=== PATIENT | female | born 1980 | race Caucasian/White ===

== ENCOUNTER 2020-11-20 14:03 | Inpatient (IN) | payer MEDICAID ==
[~2020-11-20] VITALS: Ht 172.7 cm; Wt 68.0 kg
[2020-11-20] MEDS ORDERED: ADENOSINE 6 MG/2 ML INJ IV ONE ×2 (14:15→14:17)
[2020-11-20] MEDS ORDERED: DIGOXIN (250MCG/ML) 2 ML AMPULE IV ONE ×2 (14:30→15:00)
[2020-11-20] MEDS ORDERED: DIGOXIN (250MCG/ML) 2 ML AMPULE ONE (14:36)
[2020-11-20] MEDS ORDERED: dilTIAZem 25 MG/5 ML VIAL IV ONE ×2 (14:36→14:45)
[2020-11-20 14:37] LABS: Basophils # (auto) 0.1 10 ^3/uL (0-0.2); Basophils % (auto) 0.6 % (0.0-2.0); Eosinophils # (auto) 0.1 10 ^3/uL (0-0.8); Eosinophils % (auto) 0.7 % (0.0-7.0); Hematocrit 46.9 % (36.0-46.0); Hemoglobin 15.6 g/dL (12.2-16.2); Lymphocytes # (auto) 1.9 10 ^3/uL (0.4-5.4); Mean Corpuscular Hemoglobin 30.7 pg (28.0-32.0); Mean Corpuscular Hgb Conc. 33.3 g/dL (32.0-36.0); Mean Corpuscular Volume 92.1 fL (80.0-100.0); Monocytes # (auto) 0.9 10 ^3/uL (0-1.3); Monocytes % (auto) 8.4 % (0.0-12.0); Neutrophils # (auto) 7.5 10 ^3/uL (1.6-8.6); Neutrophils % (auto) 72.3 % (37.0-80.0); Red Cell Distribution Width 13.7 % (11.8-14.3); White Blood Cell 10.3 10^3/uL (4.4-10.8)
[2020-11-20] MEDS ORDERED: dilTIAZem 125mg/125ml BAG KIT 125 ML IV ONE ×2 (14:37→14:45)
[2020-11-20 14:59] LABS: Albumin 4.1 g/dL (3.4-5.0); Calcium 8.9 mg/dL (8.5-10.1); Magnesium 2.5 mg/dL (1.6-2.6); Potassium 3.7 mmol/L (3.5-5.1)
[2020-11-20 15:04] LABS: BUN/Creatinine Ratio 18.9; Bilirubin, Total 0.6 mg/dL (0.2-1.0); Total Protein 8.2 g/dL (6.4-8.2)
[2020-11-20] MEDS ORDERED: dilTIAZem HCL 180MG ER CAP PO ONE (15:15)
[2020-11-20] MEDS ORDERED: MORPHINE SULFATE INJECTION 2 MG/ML SYRG IV PRN (22:45)
[2020-11-20] MEDS ORDERED: dilTIAZem 125mg/125ml BAG KIT 125 ML IV PRN (22:45)
[2020-11-20] MEDS ORDERED: NITROGLYCERIN 0.4 MG SL TAB SL PRN (22:45)
[2020-11-21 07:58] LABS: Basophils # (auto) 0.1 10 ^3/uL (0-0.2); Basophils % (auto) 0.9 % (0.0-2.0); Eosinophils # (auto) 0.2 10 ^3/uL (0-0.8); Eosinophils % (auto) 2.5 % (0.0-7.0); Hematocrit 45.4 % (36.0-46.0); Lymphocytes # (auto) 1.9 10 ^3/uL (0.4-5.4); Lymphocytes % (auto) 29.1 % (10.0-50.0); Mean Corpuscular Hemoglobin 30.3 pg (28.0-32.0); Mean Corpuscular Volume 91.9 fL (80.0-100.0); Monocytes # (auto) 0.6 10 ^3/uL (0-1.3); Monocytes % (auto) 8.9 % (0.0-12.0); Neutrophils # (auto) 3.8 10 ^3/uL (1.6-8.6); Neutrophils % (auto) 58.6 % (37.0-80.0); Nucleated Red Blood Cells % 0.1 %; Red Blood Cells 4.94 10^6/uL (4.0-5.20); Red Cell Distribution Width 13.4 % (11.8-14.3); White Blood Cell 6.5 10^3/uL (4.4-10.8)
[2020-11-21 08:11] LABS: Calcium 7.9 mg/dL (8.5-10.1); Magnesium 2.3 mg/dL (1.6-2.6); Potassium 3.8 mmol/L (3.5-5.1)
[2020-11-21 08:14] LABS: BUN/Creatinine Ratio 19.5
[2020-11-21] MEDS ORDERED: ASPirin 81 mg TAB PO SCH (10:00)
[2020-11-21] MEDS ORDERED: ATORVASTATIN 20 MG TAB PO SCH (10:00)
[2020-11-21] MEDS ORDERED: ENOXAPARIN SOD 40 MG/0.4 ML SYRINGE SC SCH (10:00)
[2020-11-21] MEDS ORDERED: METOPROLOL TARTRATE 25 MG TAB PO SCH (11:00)
[2020-11-21] MEDS ORDERED: POTASSIUM EFFERVESENT TAB 25 MEQ PO ONE (11:00)
[2020-11-21 13:00] VITALS: BP 122/86
[2020-11-21] MEDS ORDERED: CARV12.544 PO (13:35)
[2020-11-21] MEDS ORDERED: SACU1TAB4 PO (13:35)
[2020-11-21] MEDS ORDERED: CARV25TA55 PO (13:35)
[2020-11-21] MEDS ORDERED: FURO1TAB33 PO (13:35)
[2020-11-21 18:54] VITALS: BP 122/86
== END 2020-11-21 20:40 | disposition home or self-care (01) | DRG 201 ==
LOC: ER 14:03 → TELE 14:04 → TELE-EAST 11-21 12:14
PROVIDERS: ADMIT Hospitalist; ATTEND Hospitalist
DX: I47.1 Supraventricular tachycardia (principal); N17.0 Acute kidney failure with tubular necrosis; I50.22 Chronic systolic (congestive) heart failure; R73.9 Hyperglycemia, unspecified; E78.5 Hyperlipidemia, unspecified; R79.89 Other specified abnormal findings of blood chemistry; Z20.822 Contact with and (suspected) exposure to COVID-19; Z91.19 Patient's noncompliance with other medical treatment and regimen
CPT/HCPCS: 36415; 71045; 80048; 80053; 80061; 83735; 84443; 84484; 85025; 87426; 93005; 93306; 96365; 96366; 96372; 96375; 99291; G0378; J0153

== ENCOUNTER 2025-05-14 14:31 | Inpatient (IN) | payer MEDICAID ==
[~2025-05-14] VITALS: Ht 172.7 cm; Wt 99.0 kg
[~2025-05-14 14:31] MED LIST: CARV12.544 PO; CARV25TA55 PO; FURO1TAB33 PO; SACU1TAB4 PO
--- NOTE | 2025-05-14 14:53 | ED.PDOC ---
HPI Comments A 44 year-old female, with a PMHX of CHF, [place], and High Lipids, presents to the ED with a chief complaint of right sided chest pain with associated dizziness and SOB as of Tuesday05/11/25. Patient states chest pain is constant with associated feeling of "tightness" and "heaviness". Patient additionally reports an increase of dizziness with movement the last couple of days. Patient took 1 nitro Tuesday and Tuesday in attempt to alleviate symptoms. Patient takes Lasix and Carvedilol regularly, but reports running out of Entresto recently. Patient reports a suspected systemic Heart Attack X8 years ago. Patient has no further complaints at this time and otherwise denies further associated symptoms of palpitations, N/V, weakness, or tingling. Chief Complaint: Chest Pain Time Seen by MD: 14:51 Reviewed Notes: Nurses Notes, Medications, Allergies Allergies: Coded Allergies: No Known Drug Allergy (Verified Allergy, Unknown, 11/20/20) Home Meds Reported Medications Furosemide (Lasix) 20 Mg Tb, 1 TAB PO DAILY for SWELLING, #90 TAB 1 Refill 11/21/20 Sacubitril-Valsartan (Entresto 97-103 mg) 1 Tab Tab, 1 TAB PO BID, TAB 11/21/20 Carvedilol (Carvedilol) 25 Mg Tab, 25 MG PO HS for 30 Days, MG 11/21/20 Carvedilol (Carvedilol) 12.5 Mg Tab, 12.5 MG PO QAM for 30 Days, MG 11/21/20 Information Source: Patient Mode of Arrival: Ambulatory Severity: Moderate Duration: Since onset Prehospital treatment: None Associated Signs and Symptoms: SOB, Other (dizziness, chest pain ) Past Medical History PAST MEDICAL HISTORY: CHF, High Lipids, [place] Surgical History: Unknown Family History Family History: Reviewed,noncontributory to illness Social History Smoker: Non-Smoker Alcohol: Occasionally Drugs: Marijuana (YEARS AGO ) Lives In: Home Constitutional: denies: chills, diaphoresis, fatigue, fever, malaise, sweats, weakness, others EENTM: denies: blurred vision, double vision, ear bleeding, ear discharge, ear drainage, ear pain, ear ringing, eye pain, eye redness, hearing loss, mouth pain, mouth swelling, nasal discharge, nose bleeding, nose congestion, nose pain, photophobia, tearing, throat pain, throat swelling, voice changes, others Respiratory: reports: SOB at rest, shortness of breath, SOB with excertion; denies: cough, hemoptysis, orthopnea, stridor, wheezing, others Cardiovascular: reports: chest pain; denies: dizzy spells, diaphoresis, Dyspnea on exertion, edema, irregular heart beat, left arm pain, lightheadedness, palpitations, PND, syncope, others Gastrointestinal: denies: abdomen distended, abdominal pain, blood streaked bowels, constipated, diarrhea, dysphagia, difficulty swallowing, hematemesis, melena, nausea, poor appetite, poor fluid intake, rectal bleeding, rectal pain, vomiting, others Genitourinary: denies: abnormal vagina bleeding, burning, dyspareunia, dysuria, flank pain, frequency, hematuria, incontinence, pain, , vagina discharge, urgency, others Neurological: reports: dizziness; denies: fainting, headache, left sided numbness, left sided weakness, numbness, paresthesia, pre-existing deficit, right sided numbness, right sided weakness, seizure, speech problems, tingling, tremors, weakness, others Musculoskeletal: denies: back pain, gout, joint pain, joint swelling, muscle pain, muscle stiffness, neck pain, others Integumetry: denies: bruises, change in color, change in hair/nails, dryness, laceration, lesions, lumps, rash, wounds, others Allergic/Immunocompromised: denies: Difficulty Healing, Frequent Infections, Hives, Itching, others Hematologic/Lymphatic: denies: anemia, blood clots, easy bleeding, easy bruising, swollen glands, others Endocrine: denies: excessive hunger, excessive sweating, excessive thirst, excessive urination, flushing, intolerance to cold, intolerance to heat, unexplained weight gain, unexplained weight loss, others Psychiatric: denies: anxiety, bipolar disorder, depression, hopeless, panic disorder, schizophrenia, sleepless, suicidal, others All Other Systems: Reviewed and Negative Physical Exam General Appearance: Moderate Distress HEENT: Normal ENT Inspection, Pharynx Normal, TMs Normal Neck: Full Range of Motion, Non-Tender, Normal, Normal Inspection Respiratory: Chest Non-Tender, Lungs Clear, No Accessory Muscle Use, No Respiratory Distress, Normal Breath Sounds Cardiovascular: No Edema, No JVD, No Murmur, No Gallop, Normal Peripheral Pulses, Regular Rate/Rhythm Breast Exam: Deferred Gastrointestinal: No Organomegaly, Non Tender, No Pulsatile Mass, Normal Bowel Sounds, Soft Genitalia: Deferred Pelvic: Deferred Rectal: Deferred Extremities: No calf tenderness, Normal capillary refill, No pedal edema Musculoskeletal : Apperance: Normal Neurologic: Alert, power station operator II-XII nml as Tested, Motor Weakness, Normal Affect, Normal Mood, No Sensory Deficits Cerebellar Function: Normal Reflexes: Normal Skin: Dry, Normal Color, Warm Lymphatic: No Adenopathy EKG EKG : Pulse Rate (adult): 81 [place]: Normal Cardiac Rhythm: NSR Hypertrophy: LVH Was a procedure done? Was a procedure done?: No CP Differential Dx Differential Diagnosis: A-fib, Anxiety / Panic Attack Differential Diagnosis: HTN Essential, HTN Accelerated X-Ray, Labs, Meds, VS Vital Signs Date Time Temp Pulse Resp B/P (MAP) Pulse Ox O2 Delivery O2 Flow Rate FiO2 05/14/25 14:53 81 05/14/25 14:42 98.1 87 16 179/119 96 98.1 05/14/25 14:38 81 Lab Test 05/14/25 15:09 Range/Units White Blood Count 9.2 4.4-10.8 10^3/uL Red Blood Count 5.06 4.0-5.20 10^6/uL Hemoglobin 15.7 12.2-16.2 g/dL Hematocrit 45.7 36.0-46.0 % Mean Corpuscular Volume 90.3 80.0-100.0 fL Mean Corpuscular Hemoglobin 31.0 28.0-32.0 pg Mean Corpuscular Hemoglobin Concent 34.3 32.0-36.0 g/dL Red Cell Distribution Width 14.0 11.8-14.3 % Platelet Count 255 140-450 10^3/uL Mean Platelet Volume 8.5 6.9-10.8 fL Neutrophils (%) (Auto) 70.4 37.0-80.0 % Lymphocytes (%) (Auto) 19.3 10.0-50.0 % Monocytes (%) (Auto) 8.4 0.0-12.0 % Eosinophils (%) (Auto) 1.2 0.0-7.0 % Basophils (%) (Auto) 0.7 0.0-2.0 % Neutrophils # (Auto) 6.5 1.6-8.6 10 ^3/uL Lymphocytes # (Auto) 1.8 0.4-5.4 10 ^3/uL Monocytes # (Auto) 0.8 0-1.3 10 ^3/uL Eosinophils # (Auto) 0.1 0-0.8 10 ^3/uL Basophils # (Auto) 0.1 0-0.2 10 ^3/uL Nucleated Red Blood Cells 0.2 % Sodium Level 141 136-145 mmol/L Potassium Level 4.4 3.5-5.1 mmol/L Chloride Level 105 98-107 mmol/L Carbon Dioxide Level 29 20-31 mmol/L Anion Gap 7 5-15 Blood Urea Nitrogen 14 9-23 mg/dL Creatinine 0.89 0.550-1.02 mg/dL Glomerular Filtration Rate Calc 81 >90 mL/min BUN/Creatinine Ratio 15.7 10.0-20.0 Serum Glucose 105 74-106 mg/dL Calcium Level 9.3 8.7-10.4 mg/dL Troponin I High Sensitivity 8 </=34 ng/L CHEST XRAY IMPRESSION: No acute cardiopulmonary disease. IV Hep-Lock was established The CBC and chemistry panel are within normal limits The troponin level x1 is negative At this time, the patient is being admitted A cardiology consult will be obtained The patient understands and agrees with the management. Images Reviewed?: Images reviewed and evaluated by me Time of 1ST Reevaluation: 15:20 Reevaluation 1ST: Unchanged Patient Education/Counseling: Diagnosis, Treatment, Prognosis Family Education/Counseling: No Family Present SEPSIS Sepsis Screen Physician Orders Heplock Iv (05/14/25 15:03) Wireless Manager (05/14/25 15:03) Blood Pressure (05/14/25 15:03) Pulse Oximetry (05/14/25 15:03) Chest Two Views Routine (05/14/25 15:03) Urinalysis (05/14/25 15:03) Troponin-I Hs (05/14/25 16:03) Troponin-I Hs (05/14/25 18:03) Electrocardigram (05/14/25 16:03) Electrocardigram (05/14/25 18:03) Vital Signs Date Time Temp Pulse Resp B/P (MAP) Pulse Ox O2 Delivery O2 Flow Rate FiO2 05/14/25 14:53 81 05/14/25 14:42 98.1 87 16 179/119 96 98.1 05/14/25 14:38 81 Laboratory Tests Test 05/14/25 15:09 White Blood Count 9.2 10^3/uL (4.4-10.8) Departure 1 Departure Time of Disposition: 15:49 Impression: Primary Impression: Acute coronary syndrome Disposition: ADMITTED INPATIENT Admit to: Tele Condition: Fair Critical Care Note Critical Care Time?: Yes (45 min-critical care time only) Stability Stability form required: Yes Unstable for transfer: Telemetry monitoring (Telemetry monitoring required), ED Physician Assesment (Clinical assesment) Heart Score Heart Score: Heart Score Response (Comments) Value History Moderate Suspicious 1 EKG Normal 0 Age 45-64 1 Risk Factors 1 or 2 risk factors 1 Troponin Normal limit 0 Total 3 I personally scribed for SEEMA JONAS MD ([email or web address]) on 05/14/25 at 14:53. Electronically submitted by Asuncion Mckeon ([email or web address]). I personally scribed for SEEMA JONAS MD ([email or web address]) on 05/14/25 at 15:08. Electronically submitted by Asuncion Mckeon ([email or web address]). I personally scribed for SEEMA JONAS MD ([email or web address]) on 05/14/25 at 15:11. Electronically submitted by Asuncion Mckeon ([email or web address]). I personally scribed for SEEMA JONAS MD ([email or web address]) on 05/14/25 at 15:47. Electronically submitted by Asuncion Mckeon ([email or web address]). SEEMA JONAS MD May 14, 2025 14:53
--- NOTE | 2025-05-14 15:27 | DVH ---
XY CHEST TWO VIEWS ROUTINE CLINICAL HISTORY: CP COMPARISON: None TECHNIQUE: Frontal and lateral view of the chest was obtained FINDINGS: Lines and Tubes: None Lungs: No focal consolidation. Pleura: No effusion. No pneumothorax. Cardiomediastinal contours: Unremarkable Bones: No acute osseous abnormality. IMPRESSION: No acute cardiopulmonary disease.
[2025-05-14 15:31] LABS: Hematocrit 45.7 % (36.0-46.0); Hemoglobin 15.7 g/dL (12.2-16.2); Mean Corpuscular Hemoglobin 31.0 pg (28.0-32.0); Mean Corpuscular Volume 90.3 fL (80.0-100.0); Nucleated Red Blood Cells % 0.2 %
[2025-05-14 15:34] LABS: Chloride 105 mmol/L (98-107); Potassium 4.4 mmol/L (3.5-5.1); Sodium 141 mmol/L (136-145)
[2025-05-14 15:35] LABS: Anion Gap 7 (5-15); Calcium 9.3 mg/dL (8.7-10.4); Carbon Dioxide 29 mmol/L (20-31)
[2025-05-14 15:40] LABS: BUN/Creatinine Ratio 15.7 (10.0-20.0); Blood Urea Nitrogen 14 mg/dL (9-23); Glucose 105 mg/dL (74-106)
--- NOTE | 2025-05-14 15:47 | ECG ---
[facility] Test Date: 2025-05-14 Test Time: 15:45:09 Pat Name: IVANNA OJEDA Department: ED Room: [address] [place] [address] Gender: F [employer] Work[employer]: ALINE : 1980 Requested By: SEEMA JONAS Order Number: [id number] Reading MD: Kane Mancera Measurements Intervals [place] Rate: 73 P: 29 AR: 166 QRS: 48 QRSD: 105 T: 65 QT: 453 QTc: 500 Interpretive Statements Sinus rhythm Left atrial enlargement Probable anteroseptal infarct, old Electronically Signed On 05-15-2025 17:53:34 PDT by Kane Mancera Please click the below link to view image of tracing.
[2025-05-14 16:10] LABS: Urine Protein, UAD 1+ (Negative)
[2025-05-14] MEDS ORDERED: DOCUSATE SOD 100 MG CAP PO PRN (16:30)
[2025-05-14] MEDS ORDERED: NITROGLYCERIN 0.4 MG SL TAB SL PRN (16:30)
[2025-05-14] MEDS ORDERED: ONDANSETRON HCL 4 MG/2 ML VIAL IV PRN (16:30)
[2025-05-14] MEDS ORDERED: MORPHINE SULFATE INJ 2 MG/ml SYRG IV PRN (16:30)
--- NOTE | 2025-05-14 16:41 | DVHHP2 ---
History of Present Illness Reason for Visit: Acute coronary syndrome History of Present Illness The patient is a 44-year-old female with past medical history of CHF, hyperlipidemia, [place], and hypertension who presented to [facility] ED with complaint of right-sided chest pain. Patient reports symptoms progressively get worse with dizziness, constant chest pain, rating 7/10 numeric scale, feeling tightness and heaviness, shortness of breaths, getting worse that prompted this visit. Patient was seen and evaluated in the ED, laboratory data shows WBC 9.2, platelets 255, sodium 141, potassium 4.4, BUN 14, creatinine 0.89, glucose 105, calcium 9.3, troponin eight, blood pressure 179/110 trending down to 151/86, heart rate 87, temperature 98.1 F, O2 saturation 96% on oxygen. Chest x-ray showed no acute cardiopulmonary disease. Patient was given aspirin 81 mg x 1, clonidine 0.1 mg p.o. x1, please see medication orders section in the computer. On my assessment, patient denied chest pain at this moment, no headache, no diaphoresis, no shortness of breath, no nausea, no vomiting, no fever, no chills. Patient was admitted for further evaluation and medical management. Past Medical History CHF, High Lipids, [place] Past Surgical History Laparoscopy Family History Reviewed, noncontributory to the management of this case. Past Social History The patient lives at home, denies smoking, drinks alcohol occasionally, uses marijuana years ago. Review of Systems Constitutional: No: Fever, Chills, Sweats, Weakness, Malaise, Other Eyes: No: Pain, Vision change, Conjunctivae inflammation, Eyelid inflammation, Other, Redness ENT: No: Ear pain, Ear discharge, Nose pain, Nose discharge, Nose congestion, Mouth pain, Mouth swelling, Throat pain, Throat swelling, Other Respiratory: Shortness of breath, SOB with excertion, Other (SOB at rest); No: Cough, Dry, Wheezing, Hemoptysis, Pleuritic Pain, Sputum, Wheezing Cardiovascular: Chest Pain; No: Palpitations, Orthopnea, Paroxysmal Noc. D yspnea, Edema, Lt Headedness, Other Gastrointestinal: No: Nausea, Vomiting, Abdominal Pain, Diarrhea, Constipation, Melena, Hematochezia, Other Genitourinary: No Dysuria, No Frequency, No Incontinence, No Hematuria, No Retention, No Other Musculoskeletal: No: other, neck pain, shoulder pain, arm pain, back pain, hand pain, leg pain, foot pain Skin: No: Rash, Lesions, Jaundice, Bruising, Other Neurological: Other (Dizziness); No: Weakness, Numbness, Incoordination, Change in speech, Confusion, Seizures Allergies: Coded Allergies: No Known Drug Allergy (Verified Allergy, Unknown, 11/20/20) Exam Vital Signs Vital Signs Date Time Temp Pulse Resp B/P (MAP) Pulse Ox O2 Delivery O2 Flow Rate FiO2 05/14/25 15:45 73 05/14/25 14:42 98.1 16 179/119 96 98.1 General Appearance: Alert, Oriented X3, Cooperative, No acute distress HEENT: Atraumatic, PERRLA, EOMI, Mucous membr. moist/pink Respiratory: Clear to auscultation, Normal air movement Cardiovascular: Regular rate, Normal S1, Normal S2, No murmurs Abdominal: Normal bowel sounds, Soft, No tenderness, No hepatospenomegaly, No masses Extremities: No clubbing, No cyanosis, No edema, Normal pulses Skin: No rashes, No breakdown, No significant lesion Neuro: Normal gait, Normal speech, Strength at 5/5 X4 ext, Normal tone, Sensation intact, Cranial nerves 3-12 NL, Reflexes 2+ Psych/Mental Status: Mental status NL, Mood NL Labs/Xrays Labs Test 05/14/25 15:56 05/14/25 15:52 05/14/25 15:09 Range/Units Troponin I High Sensitivity 8 </=34 ng/L Urine Color Yellow Yellow Urine Clarity Clear Clear Urine pH 5.5 5.0-9.0 Urine Specific [place] 1.029 1.001-1.035 Urine Protein 1+ H Negative Urine Ketones Negative Negative Urine Blood Negative Negative /uL Urine Nitrite Negative Negative Urine Bilirubin Negative Negative Urine Urobilinogen Normal Negative mg/dL Urine Leukocyte Esterase Negative Negative /uL Urine RBC 1 0 - 4 /hpf Urine Microscopic WBC 2 0-5 /HPF Urine Squamous Epithelial Cells None seen <5 /hpf Urine Bacteria None seen None Seen /hpf Urine Mucus Few None Seen Urine Glucose Normal Normal mg/dL White Blood Count 9.2 4.4-10.8 10^3/uL Red Blood Count 5.06 4.0-5.20 10^6/uL Hemoglobin 15.7 12.2-16.2 g/dL Hematocrit 45.7 36.0-46.0 % Mean Corpuscular Volume 90.3 80.0-100.0 fL Mean Corpuscular Hemoglobin 31.0 28.0-32.0 pg Mean Corpuscular Hemoglobin Concent 34.3 32.0-36.0 g/dL Red Cell Distribution Width 14.0 11.8-14.3 % Platelet Count 255 140-450 10^3/uL Mean Platelet Volume 8.5 6.9-10.8 fL Neutrophils (%) (Auto) 70.4 37.0-80.0 % Lymphocytes (%) (Auto) 19.3 10.0-50.0 % Monocytes (%) (Auto) 8.4 0.0-12.0 % Eosinophils (%) (Auto) 1.2 0.0-7.0 % Basophils (%) (Auto) 0.7 0.0-2.0 % Neutrophils # (Auto) 6.5 1.6-8.6 10 ^3/uL Lymphocytes # (Auto) 1.8 0.4-5.4 10 ^3/uL Monocytes # (Auto) 0.8 0-1.3 10 ^3/uL Eosinophils # (Auto) 0.1 0-0.8 10 ^3/uL Basophils # (Auto) 0.1 0-0.2 10 ^3/uL Nucleated Red Blood Cells 0.2 % Sodium Level 141 136-145 mmol/L Potassium Level 4.4 3.5-5.1 mmol/L Chloride Level 105 98-107 mmol/L Carbon Dioxide Level 29 20-31 mmol/L Anion Gap 7 5-15 Blood Urea Nitrogen 14 9-23 mg/dL Creatinine 0.89 0.550-1.02 mg/dL Glomerular Filtration Rate Calc 81 >90 mL/min BUN/Creatinine Ratio 15.7 10.0-20.0 Serum Glucose 105 74-106 mg/dL Calcium Level 9.3 8.7-10.4 mg/dL PATIENT: IVANNA OJEDA ACCT: [id number] UNIT: [id number] : 1980 LOC: ER ROOM / BED: / AGE / SEX: 44 / F ADM STATUS: REG ER SERVICE 1503 ORDERING PHYSICIAN: SEEMA JONAS MD PROCEDURE(s): CXR2 - CHEST TWO VIEWS ROUTINE REASON: CP ORDER NUMBER(s): [id number], ACCESSION NUMBER(s): [id number] XY CHEST TWO VIEWS ROUTINE CLINICAL HISTORY: CP COMPARISON: None TECHNIQUE: Frontal and lateral view of the chest was obtained FINDINGS: Lines and Tubes: None Lungs: No focal consolidation. Pleura: No effusion. No pneumothorax. Cardiomediastinal contours: Unremarkable Bones: No acute osseous abnormality. IMPRESSION: No acute cardiopulmonary disease. SEPSIS Sepsis Screen Date sepsis recognized/suspect: May 14, 2025 Time Sepsis recognized/suspect: 1441 Recent Procedure: No On Antibiotic Therapy: No Respiratory Rate >20: No Heart Rate >90: No Temp<36 C (96.8 F) or >38.3 C: No SBP <90 or MAP <65 mmHG: No New Acute Mental Status Change: No Is the patient on CPAP, BIPAP,: No Physician Orders Heplock Iv (05/14/25 15:03) Cutter Operator Brick (05/14/25 15:03) Blood Pressure (05/14/25 15:03) Pulse Oximetry (05/14/25 15:03) Chest Two Views Routine (05/14/25 15:03) Troponin-I Hs (05/14/25 18:03) Electrocardigram (05/14/25 16:03) Electrocardigram (05/14/25 18:03) Vital Signs Date Time Temp Pulse Resp B/P (MAP) Pulse Ox O2 Delivery O2 Flow Rate FiO2 05/14/25 15:45 73 05/14/25 14:53 81 05/14/25 14:42 98.1 87 16 179/119 96 98.1 05/14/25 14:38 81 Laboratory Tests Test 05/14/25 15:09 White Blood Count 9.2 10^3/uL (4.4-10.8) Assessment/Plan Assessment/Plan Acute coronary syndrome Hypertensive urgency Plan 1. Admit to telemetry unit 2. Breathing treatment 3. Pain control management 4. Management of fluids and electrolytes 5. Consultation for hospitalist 6. Diagnostic tests chest x-ray 7. DVT prophylaxis-on aspirin 8. Repeat labs CBC, CMP in a.m. 9. Continue with current medical management 10. Treatment plan discussed with patient and RN. Patient verbalized understanding. Plan discussed with: Patient, Other (RN) Problem List: (1) Acute coronary syndrome (2) Hypertensive urgency Date of Service: May 14, 2025 Billing Provider: KENA NICOLE DNP Common Visit Codes: [id number] INP/OBS CARE (HIGH) KENA NICOLE DNP May 14, 2025 16:40
[2025-05-14 17:56] VITALS: PULSE 71; RESP 16; O2SAT 98
[2025-05-14] MEDS: SODIUM CHLOR 0.9% PF (SALINE LOCK) 10ML VIAL/SYR IV SCH (21:18)
[2025-05-14] MEDS: CARVEDILOL 12.5 MG TAB PO SCH (23:25)
[2025-05-14 23:30] VITALS: BP 161/85; PULSE 68; RESP 20; TEMP 97.9; O2SAT 96
[2025-05-15 05:00] VITALS: BP 128/64; PULSE 59; RESP 18; TEMP 97.8; O2SAT 99
[2025-05-15] MEDS: ACETAMINOPHEN 325 MG TAB PO PRN (05:55)
[2025-05-15 06:02] LABS: Hematocrit 41.2 % (36.0-46.0); Hemoglobin 14.3 g/dL (12.2-16.2); Mean Corpuscular Hemoglobin 31.3 pg (28.0-32.0); Mean Corpuscular Volume 90.4 fL (80.0-100.0); Nucleated Red Blood Cells % 0.0 %
[2025-05-15 06:21] LABS: Alanine Aminotransferase 11 U/L (7-40); Albumin 4.1 g/dL (3.2-4.8); Alkaline Phosphatase 88 U/L (46-116); Anion Gap 9 (5-15); BUN/Creatinine Ratio 17.6 (10.0-20.0); Bilirubin, Total 0.7 mg/dL (0.2-1.0); Blood Urea Nitrogen 13 mg/dL (9-23); Calcium 8.7 mg/dL (8.7-10.4); Carbon Dioxide 27 mmol/L (20-31); Chloride 105 mmol/L (98-107); Glucose 90 mg/dL (74-106); Potassium 3.6 mmol/L (3.5-5.1); Sodium 141 mmol/L (136-145); Total Protein 6.7 g/dL (5.7-8.2)
[2025-05-15 07:46] VITALS: BP 152/74; PULSE 73; RESP 21; TEMP 97.6; O2SAT 97
[2025-05-15 12:00] VITALS: BP 164/75; PULSE 53; RESP 24; TEMP 97.7; O2SAT 98
--- NOTE | 2025-05-15 15:10 | DVHPN2 ---
Subjective Continues to complain of chest tightness/heaviness Reviewed: Care Plan, H&P, Labs, Medications, Previous Orders, Radiology, Other (Consultation) Changes from previous H/P or p: No Changes Objective Vitals Vital Signs Date Time Temp Pulse Resp B/P (MAP) Pulse Ox O2 Delivery O2 Flow Rate FiO2 05/15/25 13:30 154/91 05/15/25 12:00 97.7 53 24 98 97.7 05/14/25 23:30 Room Air* 0 21 Intake/Output Intake and Output 05/15/25 07:00 Intake Total 600 ml Balance 600 ml Intake Oral 600 ml # Voids 2 General Appearance: Alert, Oriented X3, Cooperative, No acute distress HEENT: Atraumatic Lungs: Clear to auscultation, Normal air movement Cardiovascular: Regular rate, Normal S1, Normal S2 Abdomen: Normal bowel sounds, Soft, No tenderness Neuro: Normal speech, Cranial nerves 3-12 NL Psych/Mental Status: Mental status NL, Mood NL Medications Current Medications Medications Dose Ordered Sig/Mony Route Start Time Stop Time Status Last Admin Dose Admin Carvedilol 12.5 mg Q12HR PO 05/14/25 22:00 05/15/25 09:09 12.5 MG Aspirin 81 mg DAILY PO 05/15/25 10:00 05/15/25 09:08 81 MG Clonidine HCl 0.1 mg Q4HP PRN PO 05/14/25 16:30 05/15/25 11:59 0.1 MG Sodium Chloride 10 ml Q8HR IV 05/14/25 22:00 05/15/25 14:17 10 ML Acetaminophen/ Hydrocodone Bitart 1 tab Q4HP PRN PO 05/14/25 16:30 Ondansetron HCl 4 mg Q4HP PRN IV 05/14/25 16:30 Docusate Sodium 100 mg BIDPRN PRN PO 05/14/25 16:30 Acetaminophen 650 mg Q6HP PRN PO 05/14/25 16:30 05/15/25 05:55 650 MG Nitroglycerin 0.4 mg Q5MINP PRN SL 05/14/25 16:30 Morphine Sulfate 2 mg Q30M PRN IV 05/14/25 16:30 Laboratory Results Laboratory Tests 05/15/25 04:40 Chemistry Test 05/15/25 04:40 Albumin 4.1 g/dL (3.2-4.8) Calcium Level 8.7 mg/dL (8.7-10.4) Total Protein 6.7 g/dL (5.7-8.2) Coagulation Test 05/15/25 14:43 D-Dimer, Quantitative Pending LFT Test 05/15/25 04:40 Alanine Aminotransferase (ALT) 11 U/L (7-40) Alkaline Phosphatase 88 U/L (46-116) Aspartate Amino Transferase (AST) 12 U/L (13-40) L Total Bilirubin 0.7 mg/dL (0.2-1.0) Urinalysis Test 05/14/25 15:52 Urine Color Yellow (Yellow) Urine Clarity Clear (Clear) Urine pH 5.5 (5.0-9.0) Urine Specific [place] 1.029 (1.001-1.035) Urine Protein 1+ (Negative) H Urine Ketones Negative (Negative) Urine Blood Negative /uL (Negative) Urine Nitrite Negative (Negative) Urine Bilirubin Negative (Negative) Urine Urobilinogen Normal mg/dL (Negative) Urine Leukocyte Esterase Negative /uL (Negative) Urine RBC 1 /hpf (0 - 4) Urine Microscopic WBC 2 /HPF (0-5) Urine Squamous Epithelial Cells None seen /hpf (<5) Urine Bacteria None seen /hpf (None Seen) Urine Mucus Few (None Seen) Urine Glucose Normal mg/dL (Normal) Labs and/or images reviewed: Labs reviewed by me, Image(s) reviewed by me Assessment/Plan Assessment/Plan A 44 year old patient; multiple comorbidities; who presented to the emergency department with chest tightness/heaviness. 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 # HFrEF, NYHA class III; not in exacerbation # Nonischemic cardiomyopathy; due to Adderall use for ADHD # History of SVTs and pericarditis; due to Adderall use for ADHD # Prolonged QTc # History of ADHD # Dyslipidemia # Obesity Continue aspirin and statin Continue antihypertensive medications including carvedilol and adjust according to blood pressure measurements Reviewed lab work (negative troponin and negative drug screen) and imaging study Counseled the patient on the importance of adopting healthy lifestyle with diet and exercise in order to lose weight Reviewed EKGs Avoid QTc prolonging agents Continue GDMT as per cardiology Strict intake and output along with daily weight and fluid restriction Continue pain management as needed Avoid nephrotoxic agents Echocardiogram ordered Cardiology is following Telemetry Continue monitoring Goals of care discussed with the patient for 20 minutes; full code Late Entry. This medical document was created using an electronic medical record system with computerized dictation system. Although this document has been carefully reviewed, there might still be some phonetic and typographical errors. These areas are purely typographical due to imperfections of the software programs, and do not reflect any compromise in the patient's medical care. Plan discussed with: Patient, Other (Nurse) My Orders Orders - MATY JUAREZ MD Procedure Category Date Status Time * Cardiology Consult CONS 05/15/25 Transmitted 11:02 Date of Service: May 15, 2025 Billing Provider: MATY JUAREZ MD Common Visit Codes: [id number] INP/OBS CARE(HIGH) Secondary Visit Codes: [id number] CARE PLAN 30 MINUTES (20 minutes) MATY JUAREZ MD May 15, 2025 15:10
--- NOTE | 2025-05-15 15:21 | DVHINCON2 ---
Date Seen: May 15, 2025 Referring Physician MD Nohemy Reason for Consultation Chest pain History of Present Illness This is a 44-year-old female patient who presents to emergency room with chief complaint of chest pressure. Patient reports that she was experiencing chest pressure for approximately one week. She describes the pain as unprovoked, intermittent, pressure-like in nature, left-sided with radiation down her left arm. Associated symptoms include shortness of breath. Troponin levels have been negative. Initial twelve lead electrocardiogram feels a normal sinus rhythm with left ventricular hypertrophy and prolonged QTc interval. Significant past medical history includes congestive heart failure, nonischemic cardiomyopathy, myocardial infarction, pericarditis, SVT, hypertension, and dyslipidemia. Of note, the patient came in with blood pressure readings as high as 179/119. Patient showed this provider a log of home blood pressure readings with systolic readings reaching as high as 180s over the past five days. 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 Past Medical History Past medical history reviewed. No other significant than mentioned above. Past Surgical History Denies any previous surgeries Family History: Hypercholesterolemia G8 MOTHER Hypertension G8 MOTHER G8 SISTER Family History Home medications reviewed. Social History Denies the use of tobacco, alcohol or illicit drugs. Allergies: Coded Allergies: No Known Drug Allergy (Verified Allergy, Unknown, 11/20/20) Home Meds Reported Medications Furosemide (Lasix) 20 Mg Tb, 1 TAB PO DAILY for SWELLING, #90 TAB 1 Refill 11/21/20 Sacubitril-Valsartan (Entresto 97-103 mg) 1 Tab Tab, 1 TAB PO BID, TAB 11/21/20 Carvedilol (Carvedilol) 25 Mg Tab, 25 MG PO HS for 30 Days, MG 11/21/20 Carvedilol (Carvedilol) 12.5 Mg Tab, 12.5 MG PO QAM for 30 Days, MG 11/21/20 Home Meds Home medications reviewed. Current Medications Current Medications Medications (Trade) Dose Ordered Sig/Mony Route PRN Reason Start Time Stop Time Status Last Admin Carvedilol (Coreg Tablet) 12.5 mg Q12HR PO 05/14/25 22:00 05/15/25 09:09 Aspirin 81 mg DAILY PO 05/15/25 10:00 05/15/25 09:08 Clonidine HCl (Catapres Tablet) 0.1 mg Q4HP PRN PO SBP>150 05/14/25 16:30 05/15/25 11:59 Sodium Chloride (Saline Lock Ns) 10 ml Q8HR IV 05/14/25 22:00 05/15/25 14:17 Acetaminophen/ Hydrocodone Bitart ([place] 5/325MG Tab) 1 tab Q4HP PRN PO MODERATE PAIN (4-6 PAIN SCALE) 05/14/25 16:30 Ondansetron HCl (Zofran) 4 mg Q4HP PRN IV NAUSEA / VOMITING 05/14/25 16:30 Docusate Sodium (Colace Capsule) 100 mg BIDPRN PRN PO FOR CONSTIPATION 05/14/25 16:30 Acetaminophen (Tylenol Tablet) 650 mg Q6HP PRN PO PAIN SCALE 1-3 OR TEMP>100.4 05/14/25 16:30 05/15/25 05:55 Nitroglycerin (Ntrostat Sublingual) 0.4 mg Q5MINP PRN SL FOR CHEST PAIN 05/14/25 16:30 Morphine Sulfate 2 mg Q30M PRN IV FOR CHEST PAIN 05/14/25 16:30 Review of Systems Constitutional: No symptom reported Ears, Nose, & Throat: No symptom reported Eyes: No symptom reported Neurological: No symptoms reported Pulmonary/Respiratory: Shortness of breath Cardiovascular: Chest pain Gastrointestinal: No symptom reported Genitourinary: No symptom reported Musculoskeletal: No symptom reported Skin: No symptom reported Psychiatric: No symptom reported Endocrine: No symptom reported Hematologic/Lymphatic: No symptom reported Vital Signs Vital Signs Date Time Temp Pulse Resp B/P (MAP) Pulse Ox O2 Delivery O2 Flow Rate FiO2 05/15/25 13:30 154/91 05/15/25 12:00 97.7 53 24 98 97.7 05/14/25 23:30 Room Air* 0 21 Physical Exam General Appearance: Cooperative. Well-developed. Well-nourished. No acute distress. Pulmonary/Respiratory: Clear, bilateral breaths sounds. Cardiovascular/Chest: Regular rate and rhythm. Peripheral Pulses: 2+ Radial (R). 2+ Radial (L). 2+ Pedal (R). 2+ Pedal (L) Abdominal Exam: Normal bowel sounds. Ankle Exam: Negative ankle edema Lower extremities: Trace lower extremity edema Neuro/Mental Status: A/OX4, coherent. Thoughts/Psych: Normal thought pattern. Appropriate mood and affect. Good judgment and insight. Appearance: No acute distress. Skin Exam: Normal inspection. Normal color. Warm and dry. Labs/Diagnostic Data Labs Test 05/15/25 04:40 05/14/25 15:56 05/14/25 15:52 05/14/25 15:09 Range/Units White Blood Count 6.0 # 4.4-10.8 10^3/uL Red Blood Count 4.56 4.0-5.20 10^6/uL Hemoglobin 14.3 12.2-16.2 g/dL Hematocrit 41.2 36.0-46.0 % Mean Corpuscular Volume 90.4 80.0-100.0 fL Mean Corpuscular Hemoglobin 31.3 28.0-32.0 pg Mean Corpuscular Hemoglobin Concent 34.6 32.0-36.0 g/dL Red Cell Distribution Width 13.8 11.8-14.3 % Platelet Count 201 140-450 10^3/uL Mean Platelet Volume 8.6 6.9-10.8 fL Neutrophils (%) (Auto) 62.7 37.0-80.0 % Lymphocytes (%) (Auto) 25.2 10.0-50.0 % Monocytes (%) (Auto) 9.8 0.0-12.0 % Eosinophils (%) (Auto) 2.0 0.0-7.0 % Basophils (%) (Auto) 0.3 0.0-2.0 % Neutrophils # (Auto) 3.8 1.6-8.6 10 ^3/uL Lymphocytes # (Auto) 1.5 0.4-5.4 10 ^3/uL Monocytes # (Auto) 0.6 0-1.3 10 ^3/uL Eosinophils # (Auto) 0.1 0-0.8 10 ^3/uL Basophils # (Auto) 0 0-0.2 10 ^3/uL Nucleated Red Blood Cells 0.0 % Sodium Level 141 136-145 mmol/L Potassium Level 3.6 3.5-5.1 mmol/L Chloride Level 105 98-107 mmol/L Carbon Dioxide Level 27 20-31 mmol/L Anion Gap 9 5-15 Blood Urea Nitrogen 13 9-23 mg/dL Creatinine 0.74 0.550-1.02 mg/dL Glomerular Filtration Rate Calc 101 >90 mL/min BUN/Creatinine Ratio 17.6 10.0-20.0 Serum Glucose 90 74-106 mg/dL Calcium Level 8.7 8.7-10.4 mg/dL Total Bilirubin 0.7 0.2-1.0 mg/dL Aspartate Amino Transferase (AST) 12 L 13-40 U/L Alanine Aminotransferase (ALT) 11 7-40 U/L Alkaline Phosphatase 88 46-116 U/L Total Protein 6.7 5.7-8.2 g/dL Albumin 4.1 3.2-4.8 g/dL Hepatitis C Antibody Negative Negative Troponin I High Sensitivity 8 </=34 ng/L Urine Color Yellow Yellow Urine Clarity Clear Clear Urine pH 5.5 5.0-9.0 Urine Specific [place] 1.029 1.001-1.035 Urine Protein 1+ H Negative Urine Ketones Negative Negative Urine Blood Negative Negative /uL Urine Nitrite Negative Negative Urine Bilirubin Negative Negative Urine Urobilinogen Normal Negative mg/dL Urine Leukocyte Esterase Negative Negative /uL Urine RBC 1 0 - 4 /hpf Urine Microscopic WBC 2 0-5 /HPF Urine Squamous Epithelial Cells None seen <5 /hpf Urine Bacteria None seen None Seen /hpf Urine Mucus Few None Seen Urine Glucose Normal Normal mg/dL B-Type Natriuretic Peptide 132.28 0-100 pg/mL Assessment Chest pain, likely in the setting of hypertensive urgency Hx of HFrEF (per echo in 2020) , NYHA class III History of nonischemic cardiomyopathy Myocardial infarction History of SVT History pericarditis Dyslipidemia Plan/Recommendation We will continue with the following plan/recommendations (Dr. Mancera): * Transthoracic echocardiogram to evaluate cardiac function * Initiate guideline directed medical therapy for CHF * Add MRA (spironolactone) with stable potassium * Strict intake and output, daily weights, maintain fluid restriction * Aggressive BP control as tolerated * Close Cardiac surveillance Case discussed with . The patient reports undergoing a coronary angiogram with left heart catheterization in the past in which she was diagnosed with nonischemic cardiomyopathy. At this time, we will recommend for aggressive blood pressure control with up titrating her guideline directed medical therapy medications. Thank you for allowing us to care for this patient. Please call with any questions or concerns. Critical care time spent: 44 minutes This medical document was created using an electronic medical record system with voice recognition software and computerized dictation system. Although this document has been carefully reviewed, there might still be some phonetic and typographical errors. Occasional wrong-word or ``sound-alike substitutions may have occurred due to the inherent limitations of voice recognition software. These areas are purely typographical due to imperfections of the software programs and do not reflect any compromise in the patient's medical care. Please read the chart carefully and recognize, using context, where these substitutions have occurred. Plan discussed with: Patient NYHA Physical activity limitations: Class3(Marked) ordinary (activity causes symtoms) Date of Service: May 15, 2025 Billing Provider: JULES SALCEDO Cardiology Common Codes: [id number] INP/OBS CARE (High) Cardiology Consultation Codes: [id number] CONSULT <45MIN JULES SALCEDO May 15, 2025 15:20
[2025-05-15 16:55] LABS: Amphetamine Screen, Urine Neg (NEGATIVE); Barbiturate Scree,Urine Neg (NEGATIVE); Benzodiazephine Screen, Urine Neg (NEGATIVE); Cannabinoid Screen, Urine Neg (NEGATIVE); Cocaine Screen, Urine Neg (NEGATIVE); Opiate Scree,Urine Neg (NEGATIVE); Phencyclidine Screen, Urine Neg (NEGATIVE)
[2025-05-15 20:00] VITALS: PULSE 65; RESP 68; O2SAT 97
[2025-05-15 21:00] VITALS: BP 141/77; PULSE 68; RESP 19; TEMP 97.3; O2SAT 97
[2025-05-15] MEDS: SACUBITRIL-VALSARTAN 24mg/26mg TAB PO SCH (21:35)
[2025-05-16] VITALS (8 sets, daily range): BP systolic 113–157; BP diastolic 64–97; PULSE 53–71; RESP 15–19; TEMP 97–98.1; O2SAT 95–99
[2025-05-16] MEDS: HYDROcodone-ACET 5/325MG TAB PO PRN (04:47)
[2025-05-16 07:45] LABS: Hematocrit 41.2 % (36.0-46.0); Hemoglobin 14.0 g/dL (12.2-16.2); Mean Corpuscular Hemoglobin 30.6 pg (28.0-32.0); Mean Corpuscular Volume 90.0 fL (80.0-100.0); Nucleated Red Blood Cells % 0.0 %
[2025-05-16 07:51] LABS: Chloride 103 mmol/L (98-107); Potassium 4.3 mmol/L (3.5-5.1); Sodium 140 mmol/L (136-145)
[2025-05-16 07:52] LABS: Anion Gap 7 (5-15); Calcium 9.5 mg/dL (8.7-10.4); Carbon Dioxide 30 mmol/L (20-31)
[2025-05-16 07:58] LABS: BUN/Creatinine Ratio 15.6 (10.0-20.0); Blood Urea Nitrogen 15 mg/dL (9-23); Glucose 92 mg/dL (74-106)
--- NOTE | 2025-05-16 09:08 | DVHPN2 ---
Subjective Still complaining of chest tightness/heaviness Reviewed: Care Plan, H&P, Labs, Medications, Previous Orders, Radiology, Other (Consultation) Changes from previous H/P or p: No Changes Objective Vitals Vital Signs Date Time Temp Pulse Resp B/P (MAP) Pulse Ox O2 Delivery O2 Flow Rate FiO2 05/16/25 04:41 98.0 53 19 113/75 (88) 98 98.0 05/15/25 20:00 Room Air* 0 21 Intake/Output Intake and Output 05/16/25 07:00 Intake Total 120 ml Output Total 500 ml Balance -380 ml Intake Oral 120 ml Output Urine Total 500 ml General Appearance: Alert, Oriented X3, Cooperative, No acute distress HEENT: Atraumatic Lungs: Clear to auscultation, Normal air movement Cardiovascular: Regular rate, Normal S1, Normal S2 Abdomen: Normal bowel sounds, Soft, No tenderness Neuro: Normal speech, Cranial nerves 3-12 NL Psych/Mental Status: Mental status NL, Mood NL Medications Current Medications Medications Dose Ordered Sig/Mony Route Start Time Stop Time Status Last Admin Dose Admin Carvedilol 12.5 mg Q12HR PO 05/14/25 22:00 05/15/25 21:37 12.5 MG Aspirin 81 mg DAILY PO 05/15/25 10:00 05/15/25 09:08 81 MG Clonidine HCl 0.1 mg Q4HP PRN PO 05/14/25 16:30 05/15/25 11:59 0.1 MG Sodium Chloride 10 ml Q8HR IV 05/14/25 22:00 05/16/25 06:15 10 ML Acetaminophen/ Hydrocodone Bitart 1 tab Q4HP PRN PO 05/14/25 16:30 05/16/25 04:47 1 TAB Ondansetron HCl 4 mg Q4HP PRN IV 05/14/25 16:30 Docusate Sodium 100 mg BIDPRN PRN PO 05/14/25 16:30 Acetaminophen 650 mg Q6HP PRN PO 05/14/25 16:30 05/15/25 05:55 650 MG Nitroglycerin 0.4 mg Q5MINP PRN SL 05/14/25 16:30 Morphine Sulfate 2 mg Q30M PRN IV 05/14/25 16:30 Sacubitril/ Valsartan 1 tab BID PO 05/15/25 22:00 05/15/25 21:35 1 TAB Empaglifozin 10 mg DAILY PO 05/16/25 10:00 Atorvastatin Calcium 40 mg HS PO 05/16/25 22:00 Laboratory Results Laboratory Tests 05/16/25 05:56 Chemistry Test 05/16/25 05:56 Calcium Level 9.5 mg/dL (8.7-10.4) Coagulation Test 05/15/25 14:43 D-Dimer, Quantitative 0.27 mg/L FEU (0.0-0.49) Urinalysis Test 05/14/25 15:52 Urine Color Yellow (Yellow) Urine Clarity Clear (Clear) Urine pH 5.5 (5.0-9.0) Urine Specific [place] 1.029 (1.001-1.035) Urine Protein 1+ (Negative) H Urine Ketones Negative (Negative) Urine Blood Negative /uL (Negative) Urine Nitrite Negative (Negative) Urine Bilirubin Negative (Negative) Urine Urobilinogen Normal mg/dL (Negative) Urine Leukocyte Esterase Negative /uL (Negative) Urine RBC 1 /hpf (0 - 4) Urine Microscopic WBC 2 /HPF (0-5) Urine Squamous Epithelial Cells None seen /hpf (<5) Urine Bacteria None seen /hpf (None Seen) Urine Mucus Few (None Seen) Urine Glucose Normal mg/dL (Normal) Labs and/or images reviewed: Labs reviewed by me, Image(s) reviewed by me Assessment/Plan Assessment/Plan A 44 year old patient; multiple comorbidities; who presented to the emergency department with chest tightness/heaviness. 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 # HFrEF, NYHA class III; not in exacerbation # Nonischemic cardiomyopathy; due to Adderall use for ADHD # History of SVTs and pericarditis; due to Adderall use for ADHD # Prolonged QTc # History of ADHD # Dyslipidemia # Obesity Continue aspirin and statin Continue antihypertensive medications including carvedilol and adjust according to blood pressure measurements Reviewed lab work (negative troponin and negative drug screen) and imaging study Counseled the patient on the importance of adopting healthy lifestyle with diet and exercise in order to lose weight Reviewed EKGs Avoid QTc prolonging agents Continue GDMT as per cardiology Strict intake and output along with daily weight and fluid restriction Continue pain management as needed Avoid nephrotoxic agents Echocardiogram done but no results yet Cardiology is following Telemetry Continue monitoring Late Entry. This medical document was created using an electronic medical record system with computerized dictation system. Although this document has been carefully reviewed, there might still be some phonetic and typographical errors. These areas are purely typographical due to imperfections of the software programs, and do not reflect any compromise in the patient's medical care. Plan discussed with: Patient, Other (Nurse) My Orders Orders - MATY JUAREZ MD Procedure Category Date Status Time * Cardiology Consult CONS 05/15/25 Transmitted 11:02 Atorvastatin (Lipitor) PHA 05/16/25 In Process 22:00 Echo 2d Mode Cardiac US 05/16/25 Logged DOP 01:03 Date of Service: May 16, 2025 Billing Provider: MATY JUAREZ MD Common Visit Codes: [id number] INP/OBS CARE(HIGH) MATY JUAREZ MD May 16, 2025 09:08
[2025-05-16] MEDS: EMPAGLIFLOZIN 10 MG TAB PO SCH (10:09)
--- NOTE | 2025-05-16 12:30 | DVHPN2 ---
Consult Progress Note Subjective Other Systems: Patient in normal sinus rhythm on site monitor Objective vital signs Vital Sign Date Time Temp Pulse Resp B/P (MAP) Pulse Ox O2 Delivery O2 Flow Rate FiO2 05/16/25 10:10 71 154/97 05/16/25 08:30 97.0 18 97 97.0 05/16/25 08:00 Room Air* 0 21 Total Intake and Output 05/15/25 05/15/25 05/16/25 15:00 23:00 07:00 Intake Total 120 ml Output Total 500 ml Balance -380 ml medications Current Medications Medications Dose Ordered Sig/Mony Route Start Time Stop Time Status Last Admin Dose Admin Carvedilol 12.5 mg Q12HR PO 05/14/25 22:00 05/16/25 10:10 12.5 MG Aspirin 81 mg DAILY PO 05/15/25 10:00 05/16/25 10:09 81 MG Clonidine HCl 0.1 mg Q4HP PRN PO 05/14/25 16:30 05/15/25 11:59 0.1 MG Sodium Chloride 10 ml Q8HR IV 05/14/25 22:00 05/16/25 06:15 10 ML Acetaminophen/ Hydrocodone Bitart 1 tab Q4HP PRN PO 05/14/25 16:30 05/16/25 04:47 1 TAB Ondansetron HCl 4 mg Q4HP PRN IV 05/14/25 16:30 Docusate Sodium 100 mg BIDPRN PRN PO 05/14/25 16:30 Acetaminophen 650 mg Q6HP PRN PO 05/14/25 16:30 05/15/25 05:55 650 MG Nitroglycerin 0.4 mg Q5MINP PRN SL 05/14/25 16:30 Morphine Sulfate 2 mg Q30M PRN IV 05/14/25 16:30 Sacubitril/ Valsartan 1 tab BID PO 05/15/25 22:00 05/16/25 10:09 1 TAB Empaglifozin 10 mg DAILY PO 05/16/25 10:00 05/16/25 10:09 10 MG Atorvastatin Calcium 40 mg HS PO 05/16/25 22:00 Examination: GENERAL:Normal, LUNGS:Normal, CVS:Normal, NEURO:Normal laboratory and microbiology Laboratory Tests 05/16/25 05:56 Test 05/16/25 05:56 Range/Units Serum Glucose 92 74-106 mg/dL Problem List/Assessment/Plan Problem List/Assessment/Plan Chest pain, likely in the setting of hypertensive urgency Hx of HFrEF (per echo in 2020) , NYHA class III History of nonischemic cardiomyopathy Myocardial infarction History of SVT History pericarditis Dyslipidemia Plan/Recommendation (Dr. Mancera): * Transthoracic echocardiogram to evaluate cardiac function * Continue guideline directed medical therapy for CHF * Add MRA (spironolactone) with stable potassium * Strict intake and output, daily weights, maintain fluid restriction * Aggressive BP control as tolerated * Close Cardiac surveillance Case discussed with . The patient reports undergoing a coronary angiogram with left heart catheterization in the past in which she was diagnosed with nonischemic cardiomyopathy. At this time, we will recommend for aggressive blood pressure control with up titrating her guideline directed medical therapy medications. Thank you for allowing us to care for this patient. Please call with any questions or concerns. This medical document was created using an electronic medical record system with voice recognition software and computerized dictation system. Although this document has been carefully reviewed, there might still be some phonetic and typographical errors. Occasional wrong-word or ``sound-alike substitutions may have occurred due to the inherent limitations of voice recognition software. These areas are purely typographical due to imperfections of the software programs and do not reflect any compromise in the patient's medical care. Please read the chart carefully and recognize, using context, where these substitutions have occurred. Plan discussed with: Patient Date of Service: May 16, 2025 Billing Provider: JULES SALCEDO Common Visit Codes: [id number] INP/OBS CARE(HIGH) JULES SALCEDO May 16, 2025 12:30
[2025-05-16] MEDS: ATORVASTATIN 20 MG TAB PO SCH (21:11)
[2025-05-17 01:00] VITALS: BP 117/74; PULSE 65; RESP 17; TEMP 97.8; O2SAT 97
[2025-05-17 05:00] VITALS: BP 155/77; PULSE 65; RESP 17; TEMP 97.4; O2SAT 99
[2025-05-17 07:03] LABS: Chloride 106 mmol/L (98-107); Potassium 3.8 mmol/L (3.5-5.1); Sodium 140 mmol/L (136-145)
[2025-05-17 07:04] LABS: Anion Gap 8 (5-15); Calcium 8.8 mg/dL (8.7-10.4); Carbon Dioxide 26 mmol/L (20-31)
[2025-05-17 07:10] LABS: BUN/Creatinine Ratio 20.0 (10.0-20.0); Blood Urea Nitrogen 18 mg/dL (9-23); Glucose 90 mg/dL (74-106)
[2025-05-17 08:00] VITALS: PULSE 82; RESP 16
--- NOTE | 2025-05-17 08:14 | DVHPN2 ---
Subjective Feeling much better this morning with no complaints Reviewed: Care Plan, H&P, Labs, Medications, Previous Orders, Radiology, Other (Consultation) Changes from previous H/P or p: Changes Objective Vitals Vital Signs Date Time Temp Pulse Resp B/P (MAP) Pulse Ox O2 Delivery O2 Flow Rate FiO2 05/17/25 05:00 97.4 65 17 155/77 (103) 99 97.4 05/16/25 20:00 Room Air* 0 21 Intake/Output Intake and Output 05/17/25 07:00 Intake Total 340 ml Output Total 725 ml Balance -385 ml Intake Oral 340 ml Output Urine Total 725 ml General Appearance: Alert, Oriented X3, Cooperative, No acute distress HEENT: Atraumatic Lungs: Clear to auscultation, Normal air movement Cardiovascular: Regular rate, Normal S1, Normal S2 Abdomen: Normal bowel sounds, Soft, No tenderness Extremities: No edema Neuro: Normal speech, Cranial nerves 3-12 NL Psych/Mental Status: Mental status NL, Mood NL Medications Current Medications Medications Dose Ordered Sig/Mony Route Start Time Stop Time Status Last Admin Dose Admin Carvedilol 12.5 mg Q12HR PO 05/14/25 22:00 05/16/25 21:11 12.5 MG Aspirin 81 mg DAILY PO 05/15/25 10:00 05/16/25 10:09 81 MG Clonidine HCl 0.1 mg Q4HP PRN PO 05/14/25 16:30 05/15/25 11:59 0.1 MG Sodium Chloride 10 ml Q8HR IV 05/14/25 22:00 05/17/25 05:16 10 ML Acetaminophen/ Hydrocodone Bitart 1 tab Q4HP PRN PO 05/14/25 16:30 05/17/25 01:24 1 TAB Ondansetron HCl 4 mg Q4HP PRN IV 05/14/25 16:30 Docusate Sodium 100 mg BIDPRN PRN PO 05/14/25 16:30 Acetaminophen 650 mg Q6HP PRN PO 05/14/25 16:30 05/15/25 05:55 650 MG Nitroglycerin 0.4 mg Q5MINP PRN SL 05/14/25 16:30 Morphine Sulfate 2 mg Q30M PRN IV 05/14/25 16:30 Sacubitril/ Valsartan 1 tab BID PO 05/15/25 22:00 05/16/25 21:11 1 TAB Empaglifozin 10 mg DAILY PO 05/16/25 10:00 05/16/25 10:09 10 MG Atorvastatin Calcium 40 mg HS PO 05/16/25 22:00 05/16/25 21:11 40 MG Laboratory Results Laboratory Tests 05/16/25 05:56 05/17/25 06:14 Chemistry Test 05/17/25 06:14 Calcium Level 8.8 mg/dL (8.7-10.4) Urinalysis Test 05/14/25 15:52 Urine Color Yellow (Yellow) Urine Clarity Clear (Clear) Urine pH 5.5 (5.0-9.0) Urine Specific [place] 1.029 (1.001-1.035) Urine Protein 1+ (Negative) H Urine Ketones Negative (Negative) Urine Blood Negative /uL (Negative) Urine Nitrite Negative (Negative) Urine Bilirubin Negative (Negative) Urine Urobilinogen Normal mg/dL (Negative) Urine Leukocyte Esterase Negative /uL (Negative) Urine RBC 1 /hpf (0 - 4) Urine Microscopic WBC 2 /HPF (0-5) Urine Squamous Epithelial Cells None seen /hpf (<5) Urine Bacteria None seen /hpf (None Seen) Urine Mucus Few (None Seen) Urine Glucose Normal mg/dL (Normal) Labs and/or images reviewed: Labs reviewed by me, Image(s) reviewed by me Assessment/Plan Assessment/Plan A 44 year old patient; multiple comorbidities; who presented to the emergency department with chest tightness/heaviness. 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 # HFrEF, NYHA class III; not in exacerbation # Nonischemic cardiomyopathy; due to Adderall use for ADHD # History of SVTs and pericarditis; due to Adderall use for ADHD # Prolonged QTc # History of ADHD # Dyslipidemia # Obesity Reconciled home medications upon discharge; counseled on the importance of adhering to medical management especially GDMT Reviewed lab work (negative troponin and negative drug screen) and imaging study Counseled the patient on the importance of adopting healthy lifestyle with diet and exercise in order to lose weight Reviewed EKGs Encouraged to avoid QTc prolonging agents Evaluated by Cardiology during admission Encouraged to continue fluid restriction with daily weight as outpatient Received pain management during admission Was on telemetry Reviewed echocardiogram results with the patient To follow up with Dr. Juarez in discharge clinic next Tuesday To follow up with Cardiology within 2 to 4 weeks Echocardiogram results: Sinus rhythm. Left atrial enlargement. Aortic root enlargement. LV enlargement. Concentric LVH. Mild mitral annular calcification. The aortic and tricuspid are structurally normal. Left ventricular systolic performance is diminished. EF is about 35% with global hypokinesis. Normal RV function. Doppler reveals moderate mitral insufficiency. Mild tricuspid regurgitation. No pericardial effusion masses or vegetations. Late Entry. This medical document was created using an electronic medical record system with computerized dictation system. Although this document has been carefully reviewed, there might still be some phonetic and typographical errors. These areas are purely typographical due to imperfections of the software programs, and do not reflect any compromise in the patient's medical care. Plan discussed with: Patient, Other My Orders Orders - MATY JUAREZ MD Procedure Category Date Status Time Amlodipine Tablet PHA 05/17/25 Verified (Norvasc Tablet) 10:00 Date of Service: May 17, 2025 Billing Provider: MATY JUAREZ MD Common Visit Codes: [id number] INP/OBS CARE(MOD) MATY JUAREZ MD May 17, 2025 08:14
[2025-05-17 08:53] VITALS: BP 163/91; PULSE 51; RESP 16; TEMP 98.1; O2SAT 98
--- NOTE | 2025-05-17 10:31 | DVHSR ---
APPROVED REPORT EXAM: Two-dimensional and M-mode echocardiogram with Doppler and color Doppler. Blood Pressure: 113/75 mmHg INDICATION Chest Pain RISK FACTORS Height: 5'8", Weight: 201 DIMENSIONS LVDd5.8 (3.8-5.7cm)LA (2D)5.4 (1.9-4.0cm)Aortic Root3.7 (2.0-3.7cm) LVDs4.8 (2.5-4.0cm)LA (MM) (1.9-4.0cm)Aortic Cusp Exc2.2 (1.5-2.0cm) EF (%) 36.0 (55-70%)Rt. Atrium3.4 (1.9-4.0cm)Asc. Aorta3.7 cm IVSd1.1 (0.7-1.1cm)RV (D)3.8 (1.8-2.4cm) PWd1.8 (0.7-1.1cm) Mitral Valve MitralMitral Stenosis E wave0.84m/sMV Mean GR.mmHg A wave1.14m/sMV Peak GR.mmHg E/A ratio0.72D MVAcm2 DECEL [id number] 1/2 Timems Aortic Valve Aortic ValveAortic Stenosis V11.02m/Aron Mean GR.7mmHg V21.72m/Aron Peak GR.12mmHg LVOT Diameter2.6 (1.8-2.4cm)Doppler AVA3.15cm2 AI P 1/2 Sbyt896.53ms Pulmonic Valve V21.03m/s Tricuspid Valve TR Velocity2.44m/s [id number] Conclusion Sinus rhythm. Left atrial enlargement. Aortic root enlargement. LV enlargement. Concentric LVH. Mild mitral annular calcification. The aortic and tricuspid are structurally normal. Left ventricular systolic performance is diminished. EF is about 35% with global hypokinesis. Riya l RV function. Doppler reveals moderate mitral insufficiency. Mild tricuspid regurgitation. No pericardial effusion masses or vegetations.
--- NOTE | 2025-05-17 10:51 | DVHPN2 ---
Consult Progress Note Subjective Other Systems: Patient remains in normal sinus rhythm on engine monitor No cardiac complaints at time of assessment Objective vital signs Vital Sign Date Time Temp Pulse Resp B/P (MAP) Pulse Ox O2 Delivery O2 Flow Rate FiO2 05/17/25 09:26 77 163/91 05/17/25 08:53 98.1 16 98 98.1 05/17/25 08:00 Room Air* 0 21 Total Intake and Output 05/16/25 05/16/25 05/17/25 15:00 23:00 07:00 Intake Total 340 ml Output Total 725 ml Balance -385 ml medications Current Medications Medications Dose Ordered Sig/Mony Route Start Time Stop Time Status Last Admin Dose Admin Carvedilol 12.5 mg Q12HR PO 05/14/25 22:00 05/17/25 09:26 12.5 MG Aspirin 81 mg DAILY PO 05/15/25 10:00 05/17/25 09:26 81 MG Clonidine HCl 0.1 mg Q4HP PRN PO 05/14/25 16:30 05/15/25 11:59 0.1 MG Sodium Chloride 10 ml Q8HR IV 05/14/25 22:00 05/17/25 05:16 10 ML Acetaminophen/ Hydrocodone Bitart 1 tab Q4HP PRN PO 05/14/25 16:30 05/17/25 01:24 1 TAB Ondansetron HCl 4 mg Q4HP PRN IV 05/14/25 16:30 Docusate Sodium 100 mg BIDPRN PRN PO 05/14/25 16:30 Acetaminophen 650 mg Q6HP PRN PO 05/14/25 16:30 05/15/25 05:55 650 MG Nitroglycerin 0.4 mg Q5MINP PRN SL 05/14/25 16:30 Morphine Sulfate 2 mg Q30M PRN IV 05/14/25 16:30 Sacubitril/ Valsartan 1 tab BID PO 05/15/25 22:00 05/17/25 09:24 1 TAB Empaglifozin 10 mg DAILY PO 05/16/25 10:00 05/17/25 09:25 10 MG Atorvastatin Calcium 40 mg HS PO 05/16/25 22:00 05/16/25 21:11 40 MG Amlodipine Besylate 10 mg DAILY PO 05/17/25 10:00 05/17/25 09:25 10 MG Examination: GENERAL:Normal, LUNGS:Normal, CVS:Normal, NEURO:Normal laboratory and microbiology Laboratory Tests 05/17/25 06:14 05/16/25 05:56 Test 05/17/25 06:14 Range/Units Serum Glucose 90 74-106 mg/dL Problem List/Assessment/Plan Problem List/Assessment/Plan Chest pain, likely in the setting of hypertensive urgency Acute on chronic HFrEF , NYHA class III History of nonischemic cardiomyopathy Moderate mitral insufficiency Mild tricuspid regurgitation Myocardial infarction History of SVT History pericarditis Dyslipidemia Plan/Recommendation (Dr. Mancera): * Transthoracic echocardiogram reveals EF 35% with global hypokinesis * Continue guideline directed medical therapy for CHF * Hold CCB's as this is contraindicated in heart failure with reduced ejection fraction * Strict intake and output, daily weights, maintain fluid restriction * Aggressive BP control as tolerated * Close Cardiac surveillance Case discussed with . The patient reports undergoing a coronary angiogram with left heart catheterization in the past in which she was diagnosed with nonischemic cardiomyopathy. At this time, we will recommend for aggressive blood pressure control with up titrating her guideline directed medical therapy medications. Thank you for allowing us to care for this patient. Please call with any questions or concerns. This medical document was created using an electronic medical record system with voice recognition software and computerized dictation system. Although this document has been carefully reviewed, there might still be some phonetic and typographical errors. Occasional wrong-word or ``sound-alike substitutions may have occurred due to the inherent limitations of voice recognition software. These areas are purely typographical due to imperfections of the software programs and do not reflect any compromise in the patient's medical care. Please read the chart carefully and recognize, using context, where these substitutions have occurred. Plan discussed with: Patient Date of Service: May 17, 2025 Billing Provider: JULES SALCEDO Common Visit Codes: [id number] INP/OBS CARE(HIGH) JULES SALCEDO May 17, 2025 10:51
[2025-05-17 13:00] VITALS: BP 152/93; PULSE 54; RESP 16; TEMP 98; O2SAT 96
[2025-05-17] MEDS: SPIRONOLACTONE 25 MG TAB PO ONE (13:36)
[2025-05-17] MEDS ORDERED: SPIR25TA PO (14:27)
[2025-05-17] MEDS ORDERED: NITR0.4S29 SL (14:27)
[2025-05-17] MEDS ORDERED: ATOR20TA50 PO (14:27)
[2025-05-17] MEDS ORDERED: CARV-216 PO (14:27)
[2025-05-17] MEDS ORDERED: EMPA1TAB PO (14:27)
[2025-05-17] MEDS ORDERED: SACU1TAB PO (14:27)
--- NOTE | 2025-05-17 14:32 | DVHDS2 ---
Discharge Summary Date of Admission May 14, 2025 at 16:28 Date of Discharge: May 17, 2025 Admitting Diagnosis Chest tightness/heaviness Labs/Diagnostic Data: Laboratory Results Test 05/17/25 06:14 05/16/25 05:56 05/15/25 16:15 05/15/25 14:43 Sodium Level 140 mmol/L (136-145) Potassium Level 3.8 mmol/L (3.5-5.1) Chloride Level 106 mmol/L (98-107) Carbon Dioxide Level 26 mmol/L (20-31) Anion Gap 8 (5-15) Blood Urea Nitrogen 18 mg/dL (9-23) Creatinine 0.90 mg/dL (0.550-1.02) Glomerular Filtration Rate Calc 80 mL/min (>90) BUN/Creatinine Ratio 20.0 (10.0-20.0) Serum Glucose 90 mg/dL (74-106) Calcium Level 8.8 mg/dL (8.7-10.4) White Blood Count 5.0 10^3/uL (4.4-10.8) Red Blood Count 4.58 10^6/uL (4.0-5.20) Hemoglobin 14.0 g/dL (12.2-16.2) Hematocrit 41.2 % (36.0-46.0) Mean Corpuscular Volume 90.0 fL (80.0-100.0) Mean Corpuscular Hemoglobin 30.6 pg (28.0-32.0) Mean Corpuscular Hemoglobin Concent 34.0 g/dL (32.0-36.0) Red Cell Distribution Width 14.1 % (11.8-14.3) Platelet Count 217 10^3/uL (140-450) Mean Platelet Volume 8.9 fL (6.9-10.8) Neutrophils (%) (Auto) 63.0 % (37.0-80.0) Lymphocytes (%) (Auto) 25.1 % (10.0-50.0) Monocytes (%) (Auto) 9.8 % (0.0-12.0) Eosinophils (%) (Auto) 1.8 % (0.0-7.0) Basophils (%) (Auto) 0.3 % (0.0-2.0) Neutrophils # (Auto) 3.1 10 ^3/uL (1.6-8.6) Lymphocytes # (Auto) 1.2 10 ^3/uL (0.4-5.4) Monocytes # (Auto) 0.5 10 ^3/uL (0-1.3) Eosinophils # (Auto) 0.1 10 ^3/uL (0-0.8) Basophils # (Auto) 0 10 ^3/uL (0-0.2) Nucleated Red Blood Cells 0.0 % Urine Opiates Screen Neg (NEGATIVE) Urine Fentanyl Screen Neg (NEGATIVE) Urine Barbiturates Screen Neg (NEGATIVE) Urine Phencyclidine Screen Neg (NEGATIVE) Urine Amphetamines Screen Neg (NEGATIVE) Urine Benzodiazepines Screen Neg (NEGATIVE) Urine Cocaine Screen Neg (NEGATIVE) Urine Cannabinoids Screen Neg (NEGATIVE) D-Dimer, Quantitative 0.27 mg/L FEU (0.0-0.49) Test 05/15/25 04:40 05/14/25 15:56 05/14/25 15:52 05/14/25 15:09 Total Bilirubin 0.7 mg/dL (0.2-1.0) Aspartate Amino Transferase (AST) 12 U/L (13-40) Alanine Aminotransferase (ALT) 11 U/L (7-40) Alkaline Phosphatase 88 U/L (46-116) Total Protein 6.7 g/dL (5.7-8.2) Albumin 4.1 g/dL (3.2-4.8) Hepatitis B Core Total Antibody Negative (Negative) Hepatitis C Antibody Negative (Negative) Troponin I High Sensitivity 8 ng/L (</=34) Urine Color Yellow (Yellow) Urine Clarity Clear (Clear) Urine pH 5.5 (5.0-9.0) Urine Specific [place] 1.029 (1.001-1.035) Urine Protein 1+ (Negative) Urine Ketones Negative (Negative) Urine Blood Negative /uL (Negative) Urine Nitrite Negative (Negative) Urine Bilirubin Negative (Negative) Urine Urobilinogen Normal mg/dL (Negative) Urine Leukocyte Esterase Negative /uL (Negative) Urine RBC 1 /hpf (0 - 4) Urine Microscopic WBC 2 /HPF (0-5) Urine Squamous Epithelial Cells None seen /hpf (<5) Urine Bacteria None seen /hpf (None Seen) Urine Mucus Few (None Seen) Urine Glucose Normal mg/dL (Normal) B-Type Natriuretic Peptide 132.28 pg/mL (0-100) Other Laboratory Tests 05/17/25 06:14 05/16/25 05:56 Brief Hx & Hospital Course: A 44 year old patient; multiple comorbidities; who presented to the emergency department with chest tightness/heaviness. 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 # HFrEF, NYHA class III; not in exacerbation # Nonischemic cardiomyopathy; due to Adderall use for ADHD # History of SVTs and pericarditis; due to Adderall use for ADHD # Prolonged QTc # History of ADHD # Dyslipidemia # Obesity Reconciled home medications upon discharge; counseled on the importance of adhering to medical management especially GDMT Reviewed lab work (negative troponin and negative drug screen) and imaging study Counseled the patient on the importance of adopting healthy lifestyle with diet and exercise in order to lose weight Reviewed EKGs Encouraged to avoid QTc prolonging agents Evaluated by Cardiology during admission Encouraged to continue fluid restriction with daily weight as outpatient Received pain management during admission Was on telemetry Reviewed echocardiogram results with the patient To follow up with Dr. Juarez in discharge clinic next Tuesday To follow up with Cardiology within 2 to 4 weeks Echocardiogram results: Sinus rhythm. Left atrial enlargement. Aortic root enlargement. LV enlargement. Concentric LVH. Mild mitral annular calcification. The aortic and tricuspid are structurally normal. Left ventricular systolic performance is diminished. EF is about 35% with global hypokinesis. Normal RV function. Doppler reveals moderate mitral insufficiency. Mild tricuspid regurgitation. No pericardial effusion masses or vegetations. Physical examination as documented in the progress note of the day of discharge Late Entry. This medical document was created using an electronic medical record system with computerized dictation system. Although this document has been carefully reviewed, there might still be some phonetic and typographical errors. These areas are purely typographical due to imperfections of the software programs, and do not reflect any compromise in the patient's medical care. Consults/Reason for consult Cardiology for chest tightness/heaviness Condition at Discharge: Stable Final Diagnosis/Problems List Chest pain, likely in the setting of hypertensive urgency Rest of diagnoses as above Discharge Disposition: Home Discharge Instruct/Medications Diet: Cardiac 2g Na,low cholest Activity: No Restrictions, As Tolerated Follow Up/Referral: Dr. Juarez/Dr. Aden at 10:30 am on Tuesday at [facility]; Dr. Mancera within 2 to 4 weeks Medications: As per EMR Scheduled Atorvastatin Calcium (Atorvastatin Calcium), 20 MG PO HS Carvedilol (Coreg), 12.5 MG PO Q12HR Empagliflozin (Jardiance), 10 MG PO DAILY Furosemide (Lasix), 1 TAB PO DAILY, (Reported) Sacubitril-Valsartan (Entresto 24-26 mg), 1 TAB PO BID Spironolactone (Aldactone), 25 MG PO DAILY Scheduled PRN Nitroglycerin (Ntrostat Sublingual), 0.4 MG SL Q5MINP PRN Discontinued Medications Carvedilol (Carvedilol), 12.5 MG PO QAM, (Reported) Carvedilol (Carvedilol), 25 MG PO HS, (Reported) Sacubitril-Valsartan (Entresto 97-103 mg), 1 TAB PO BID, (Reported) Discharge Statement: "Patient was advised to return to the ER or call 911 if any headaches, dizziness, shortness of breath, chest pain, abdominal pain, bleeding, fevers, or worsening of medical condition. Patient was counseled about treatment plan, medications, possible side effects, patientverbalized understanding. All questions were answered to the best of my ability. This discharge took greater then 30 minutes in planning, reviewing documentation, counseling the patient, and discussing with other team members." ASSESSMENT ASSESSMENT Assessment Date of Service: May 17, 2025 Billing Provider: MATY JUAREZ MD Common Visit Codes: 27787-ANN/OBS DISCH DAY >30min MATY JUAREZ MD May 17, 2025 14:31
[2025-05-17 16:58] VITALS: BP 139/79; PULSE 55; RESP 18; TEMP 98; O2SAT 96
[2025-05-18] MEDS ORDERED: SPIRONOLACTONE 25 MG TAB PO SCH (10:00)
== END 2025-05-17 18:00 | disposition home or self-care (01) | DRG 199 ==
LOC: ER 14:31 → OVERFLOW 16:28 → TELE-WESTW 05-15 17:30
PROVIDERS: ADMIT Internal Medicine; ATTEND Internal Medicine
DX: I16.0 Hypertensive urgency (principal); N17.0 Acute kidney failure with tubular necrosis; I50.23 Acute on chronic systolic (congestive) heart failure; I11.0 Hypertensive heart disease with heart failure; I42.8 Other cardiomyopathies; I34.81 Nonrheumatic mitral (valve) annulus calcification; E66.9 Obesity, unspecified; Z68.30 Body mass index [BMI] 30.0-30.9, adult; I07.1 Rheumatic tricuspid insufficiency; I34.0 Nonrheumatic mitral (valve) insufficiency; I24.9 Acute ischemic heart disease, unspecified; F90.9 Attention-deficit hyperactivity disorder, unspecified type; E78.5 Hyperlipidemia, unspecified; Z82.49 Family history of ischemic heart disease and other diseases of the circulatory system; I25.2 Old myocardial infarction
CPT/HCPCS: 36415; 71046; 80048; 80053; 80307; 81001; 83880; 84484; 85025; 85379; 86803; 93005; 93306; 99291; G0378

== ENCOUNTER 2025-09-24 14:37 | Inpatient (IN) | payer MEDICAID ==
[~2025-09-24] VITALS: Ht 172.7 cm; Wt 82.0 kg
[~2025-09-24 14:37] MED LIST changes: +ATOR20TA50 PO; +CARV-216 PO; -CARV12.544 PO; -CARV25TA55 PO; +EMPA1TAB PO; +NITR0.4S29 SL; +SACU1TAB PO; -SACU1TAB4 PO; +SPIR25TA PO
[2025-09-24 15:13] LABS: Hematocrit 49.0 % (36.0-46.0); Hemoglobin 16.5 g/dL (12.2-16.2); Mean Corpuscular Hemoglobin 30.5 pg (28.0-32.0); Mean Corpuscular Volume 90.6 fL (80.0-100.0); Nucleated Red Blood Cells % 0.0 %
--- NOTE | 2025-09-24 15:53 | ECG ---
[facility] Test Date: 2025-09-24 Test Time: 15:52:20 Pat Name: IVANNA OJEDA Department: ER Room: [address] [place] [address] Gender: F Drug Safety Data Management Specialist: DB : 1980 Requested By: CAROLIN FONSECA Order Number: [id number] Reading MD: Kane Mancera Measurements Intervals Stewart Rate: 94 P: 15 VT: 159 QRS: 24 QRSD: 100 T: 61 QT: 389 QTc: 487 Interpretive Statements Sinus rhythm Left atrial enlargement Anteroseptal infarct, age indeterminate Baseline wander in lead(s) V2,V5 Electronically Signed On 09-26-2025 20:05:40 PST by Kane Mancera Please click the below link to view image of tracing.
[2025-09-24 16:01] LABS: Potassium 4.1 mmol/L (3.5-5.1); Sodium 142 mmol/L (136-145)
[2025-09-24 16:02] LABS: Anion Gap 16 (5-15)
[2025-09-24 16:03] LABS: Calcium 8.9 mg/dL (8.7-10.4)
[2025-09-24 16:05] LABS: Carbon Dioxide 17 mmol/L (20-31); Chloride 109 mmol/L (98-107)
[2025-09-24 16:08] LABS: BUN/Creatinine Ratio 13.8 (10.0-20.0); Blood Urea Nitrogen 15 mg/dL (9-23)
[2025-09-24 16:09] LABS: Glucose 111 mg/dL (74-106)
--- NOTE | 2025-09-24 17:11 | ED.PDOC ---
HPI Comments 44-year-old female who presented to ED for chief complaint of chest pain. Patient states she has been having chest pain for the past five days. Patient states the chest pain is squeezing in nature radiating to her neck with a noted choking sensation and otherwise denies any associated exacerbating or relieving factors. Patient states that she took two nitro earlier today and states she still felt chest pain and came to the ED for evaluation. Patient also states that she has gone into SVT 3 times recently, most recently this morning which she resolved with vagal maneuvers herself. Patient has a ED otherwise states she has a associated nausea but otherwise denies any other symptoms. Patient with a white stated that she has a history of long QT syndrome, SVT and MT states she has been hospitalized in the past for similar symptoms due to her past medical history. Patient denies any other symptoms at this time. Chief Complaint: Chest Pain Time Seen by : 16:43 Reviewed Notes: Medications, Allergies Allergies: Coded Allergies: No Known Drug Allergy (Verified Allergy, Unknown, 11/20/20) Home Meds Active Scripts Spironolactone (Aldactone) 25 Mg Tab, 25 MG PO DAILY for 30 Days, #30 TAB Prov:MATY JUAREZ MD 05/17/25 Sacubitril-Valsartan (Entresto 24-26 mg) 1 Tab Tab, 1 TAB PO BID for 30 Days, #60 TAB Prov:MATY JUAREZ MD 05/17/25 Nitroglycerin (NTROSTAT SUBLINGUAL) 0.4 Mg Sl, 0.4 MG SL Q5MINP PRN for 30 Days, #90 TAB Prov:MATY JUAREZ MD 05/17/25 Empagliflozin (Jardiance) 10 Mg Tab, 10 MG PO DAILY for 30 Days, #30 TAB Prov:MATY JUAREZ MD 05/17/25 Carvedilol (COREG) 12.5 Mg Tab, 12.5 MG PO Q12HR for 30 Days, #60 TAB Prov:MATY JUAREZ MD 05/17/25 Atorvastatin Calcium (ATORVASTATIN CALCIUM) 20 Mg Tab, 20 MG PO HS for 30 Days, #30 TAB Prov:MATY JUAREZ MD 05/17/25 Reported Medications Furosemide (Lasix) 20 Mg Tb, 1 TAB PO DAILY for SWELLING, #90 TAB 1 Refill 11/21/20 Information Source: Patient Mode of Arrival: Ambulatory Brought in by: self Timing: Hours Duration: Since onset Past Medical History PAST MEDICAL HISTORY: CHF, High Lipids, MT Surgical History: Unknown Family History Family History: Reviewed,noncontributory to illness Social History Smoker: Non-Smoker Alcohol: Occasionally Drugs: Marijuana Lives In: Home Constitutional: denies: chills, diaphoresis, fatigue, fever, malaise, sweats, weakness, others EENTM: denies: blurred vision, double vision, ear bleeding, ear discharge, ear drainage, ear pain, ear ringing, eye pain, eye redness, hearing loss, mouth pain, mouth swelling, nasal discharge, nose bleeding, nose congestion, nose pain, photophobia, tearing, throat pain, throat swelling, voice changes, others Respiratory: reports: shortness of breath; denies: cough, hemoptysis, orthopnea, SOB at rest, SOB with excertion, stridor, wheezing, others Cardiovascular: reports: chest pain; denies: dizzy spells, diaphoresis, Dyspnea on exertion, edema, irregular heart beat, left arm pain, lightheadedness, palpitations, PND, syncope, others Gastrointestinal: denies: abdomen distended, abdominal pain, blood streaked bowels, constipated, diarrhea, dysphagia, difficulty swallowing, hematemesis, melena, nausea, poor appetite, poor fluid intake, rectal bleeding, rectal pain, vomiting, others Genitourinary: denies: abnormal vagina bleeding, burning, dyspareunia, dysuria, flank pain, frequency, hematuria, incontinence, pain, , vagina discharge, urgency, others Neurological: denies: dizziness, fainting, headache, left sided numbness, left sided weakness, numbness, paresthesia, pre-existing deficit, right sided numbness, right sided weakness, seizure, speech problems, tingling, tremors, weakness, others Musculoskeletal: denies: back pain, gout, joint pain, joint swelling, muscle pain, muscle stiffness, neck pain, others Integumetry: denies: bruises, change in color, change in hair/nails, dryness, laceration, lesions, lumps, rash, wounds, others Allergic/Immunocompromised: denies: Difficulty Healing, Frequent Infections, Hives, Itching, others Hematologic/Lymphatic: denies: anemia, blood clots, easy bleeding, easy bruising, swollen glands, others Endocrine: denies: excessive hunger, excessive sweating, excessive thirst, excessive urination, flushing, intolerance to cold, intolerance to heat, unexplained weight gain, unexplained weight loss, others Psychiatric: denies: anxiety, bipolar disorder, depression, hopeless, panic disorder, schizophrenia, sleepless, suicidal, others All Other Systems: Reviewed and Negative Physical Exam General Appearance: No Apparent Distress, Normal HEENT: Normal ENT Inspection, Pharynx Normal, TMs Normal Neck: Full Range of Motion, Non-Tender, Normal, Normal Inspection Respiratory: Chest Non-Tender, Lungs Clear, No Accessory Muscle Use, No Respiratory Distress, Normal Breath Sounds Cardiovascular: No Edema, No JVD, No Murmur, No Gallop, Normal Peripheral Pulses, Regular Rate/Rhythm Breast Exam: Deferred Gastrointestinal: No Organomegaly, Non Tender, No Pulsatile Mass, Normal Bowel Sounds, Soft Genitalia: Deferred Pelvic: Deferred Rectal: Deferred Extremities: No calf tenderness, Normal capillary refill, Normal inspection, Normal range of motion, Non-tender, No pedal edema Musculoskeletal : Apperance: Normal Neurologic: Alert, front end technician II-XII nml as Tested, No Motor Deficits, Normal Affect, Normal Mood, No Sensory Deficits Cerebellar Function: Normal Reflexes: Normal Skin: Dry, Normal Color, Warm Lymphatic: No Adenopathy Was a procedure done? Was a procedure done?: No CP Differential Dx Differential Diagnosis: A-fib, A-Flutter, Angina, Anxiety / Panic Attack, Atrial Dysrhythmia, Electrolyte Disorder, Heart Failure, MT, PAC's, Pulmonary Embolus, PVC's, Sinus Tachycardia Differential Diagnosis: HTN Essential, HTN Accelerated, HTN Encephalopathy, Medical NonCompliance Differential Diagnosis: Chest Wall Pain X-Ray, Labs, Meds, VS Vital Signs Date Time Temp Pulse Resp B/P (MAP) Pulse Ox O2 Delivery O2 Flow Rate FiO2 09/24/25 15:52 94 09/24/25 14:48 98 09/24/25 14:39 98.0 109 22 185/131 98 98.0 Lab Test 09/24/25 17:47 09/24/25 15:29 09/24/25 14:31 Range/Units Troponin I High Sensitivity 8 7 7 </=34 ng/L White Blood Count 9.3 4.4-10.8 10^3/uL Red Blood Count 5.40 H 4.0-5.20 10^6/uL Hemoglobin 16.5 H 12.2-16.2 g/dL Hematocrit 49.0 H 36.0-46.0 % Mean Corpuscular Volume 90.6 80.0-100.0 fL Mean Corpuscular Hemoglobin 30.5 28.0-32.0 pg Mean Corpuscular Hemoglobin Concent 33.6 32.0-36.0 g/dL Red Cell Distribution Width 13.8 11.8-14.3 % Platelet Count 226 140-450 10^3/uL Mean Platelet Volume 8.2 6.9-10.8 fL Neutrophils (%) (Auto) 71.6 37.0-80.0 % Lymphocytes (%) (Auto) 19.4 10.0-50.0 % Monocytes (%) (Auto) 7.7 0.0-12.0 % Eosinophils (%) (Auto) 0.8 0.0-7.0 % Basophils (%) (Auto) 0.5 0.0-2.0 % Neutrophils # (Auto) 6.7 1.6-8.6 10 ^3/uL Lymphocytes # (Auto) 1.8 0.4-5.4 10 ^3/uL Monocytes # (Auto) 0.7 0-1.3 10 ^3/uL Eosinophils # (Auto) 0.1 0-0.8 10 ^3/uL Basophils # (Auto) 0 0-0.2 10 ^3/uL Nucleated Red Blood Cells 0.0 % Sodium Level 142 136-145 mmol/L Potassium Level 4.1 3.5-5.1 mmol/L Chloride Level 109 H 98-107 mmol/L Carbon Dioxide Level 17 L 20-31 mmol/L Anion Gap 16 H 5-15 Blood Urea Nitrogen 15 9-23 mg/dL Creatinine 1.09 H 0.550-1.02 mg/dL Glomerular Filtration Rate Calc 63 >90 mL/min BUN/Creatinine Ratio 13.8 10.0-20.0 Serum Glucose 111 H 74-106 mg/dL Calcium Level 8.9 8.7-10.4 mg/dL [facility] [address] [facility] [address] Ph: [phone] DIAGNOSTIC IMAGING Diagnostic Imaging Report : [id number] Signed PATIENT: IVANNA OJEDA ACCT: [id number] UNIT: [id number] : 1980 LOC: ER ROOM / BED: / AGE / SEX: 44 / F ADM STATUS: REG ER SERVICE 1650 ORDERING PHYSICIAN: CAROLIN FONSECA MD PROCEDURE(s): CXR1 - CHEST XRAY 1 VIEW REASON: cp ORDER NUMBER(s): [id number], ACCESSION NUMBER(s): [id number] CHEST RADIOGRAPH INDICATION: cp TECHNIQUE: Single frontal view of the chest was obtained COMPARISON: CHEST PORTABLE on DOS: 11/20/20 FINDINGS: Lines and Tubes: None Lungs: No focal consolidation. Pleura: No effusion. No pneumothorax. Cardiomediastinal contours: Borderline cardiomegaly Bones: No acute osseous abnormality. IMPRESSION: Borderline cardiomegaly. Otherwise, No acute cardiopulmonary disease. ATED BY: DEYSI VILLA DO DICTATED DATE/TIME: 09/24/251713 SIGNED BY: DEYSI VILLA DO SIGNED DATE/TIME: 09/24/251713 CC: X-Ray, Labs, Meds, VS Comment 44-year-old female with a extensive cardiac history here today with chest pain as above. Vital signs stable. Plan made to admit the patient for further cardiac risk stratification and telemetry monitoring. Time of 1ST Reevaluation: 17:10 Reevaluation 1ST: Unchanged Patient Education/Counseling: Diagnosis, Treatment Family Education/Counseling: No Family Present SEPSIS Sepsis Screen Date sepsis recognized/suspect: Sep 24, 2025 Time Sepsis recognized/suspect: 1441 Recent Procedure: No On Antibiotic Therapy: No Respiratory Rate >20: Yes Heart Rate >90: Yes Temp<36 C (96.8 F) or >38.3 C: No SBP <90 or MAP <65 mmHG: No New Acute Mental Status Change: No Is the patient on CPAP, BIPAP,: No Physician Orders Electrocardigram (09/24/25 15:42) Electrocardigram (09/24/25 17:42) Chest Xray 1 View (09/24/25 16:50) Vital Signs Date Time Temp Pulse Resp B/P (MAP) Pulse Ox O2 Delivery O2 Flow Rate FiO2 09/24/25 15:52 94 09/24/25 14:48 98 09/24/25 14:39 98.0 109 22 185/131 98 98.0 Laboratory Tests Test 09/24/25 14:31 White Blood Count 9.3 10^3/uL (4.4-10.8) Departure 1 Departure Time of Disposition: 19:26 Impression: Primary Impression: Unstable angina Disposition: ADMITTED INPATIENT Admit to: Tele Condition: Guarded Critical Care Note Critical Care Time?: Yes (30 min-critical care time only) Stability Stability form required: No Heart Score Heart Score: Heart Score Response (Comments) Value History Moderate Suspicious 1 EKG Repolarization Disturb 1 Age 45-64 1 Risk Factors >3 or Hx ASHD 2 Troponin Normal limit 0 Total 5 I personally scribed for CAROLIN FONSECA MD ([facility]) on 09/24/25 at 17:10. Electronically submitted by Ester Concepcion ([facility]). I personally scribed for CAROLIN FONSECA MD (DV[facility]AR) on 09/24/25 at 17:53. Electronically submitted by Ester Concepcion ([facility]). CAROLIN FONSECA MD Sep 24, 2025 17:10
--- NOTE | 2025-09-24 17:17 | DVH ---
CHEST RADIOGRAPH INDICATION: cp TECHNIQUE: Single frontal view of the chest was obtained COMPARISON: CHEST PORTABLE on DOS: 11/20/20 FINDINGS: Lines and Tubes: None Lungs: No focal consolidation. Pleura: No effusion. No pneumothorax. Cardiomediastinal contours: Borderline cardiomegaly Bones: No acute osseous abnormality. IMPRESSION: Borderline cardiomegaly. Otherwise, No acute cardiopulmonary disease.
[2025-09-24] MEDS ORDERED: MORPHINE SULFATE INJ 2 MG/ml SYRG IV PRN (20:00)
[2025-09-24] MEDS ORDERED: NITROGLYCERIN 0.4 MG SL TAB SL PRN (20:00)
[2025-09-24] MEDS ORDERED: ONDANSETRON HCL 4 MG/2 ML VIAL IV PRN (20:15)
[2025-09-24] MEDS ORDERED: ACETAMINOPHEN 325 MG TAB PO PRN (20:15)
[2025-09-24] MEDS: SODIUM CHLORIDE 0.9% 1,000 ML IV ONE (20:49)
[2025-09-24] MEDS: hydrALAZINE HCL 20 MG/ML VL IV ONE (21:00)
--- NOTE | 2025-09-24 21:24 | DVHHP2 ---
History of Present Illness Reason for Visit: Chest pain History of Present Illness 44-year-old female presents for evaluation of chest pain. Patient reports a four day history of left-sided squeezing chest pain that radiates to her neck with associated shortness for breath. Denies cough or fever. Reports being compliant with her medications. Past Medical History AK, dyslipidemia, hypertension, CHF Past Surgical History Denies Family History Noncontributory Smoke: No ALCOHOL: occassional Drugs: Marijuana Lives: with Family Review of Systems Review of Systems Review of systems are currently negative otherwise addressed in HPI. Allergies: Coded Allergies: No Known Drug Allergy (Verified Allergy, Unknown, 11/20/20) Medications Current Medications Medications Dose Ordered Sig/Mony Route Start Time Stop Time Status Last Admin Dose Admin Nitroglycerin 0.4 mg Q5MINP PRN SL 09/24/25 20:00 Morphine Sulfate 2 mg Q30M PRN IV 09/24/25 20:00 Atorvastatin Calcium 20 mg HS PO 09/24/25 22:00 Carvedilol 12.5 mg Q12HR PO 09/24/25 22:00 Empaglifozin 10 mg DAILY PO 09/25/25 10:00 Furosemide 20 mg DAILY PO 09/25/25 10:00 Sacubitril/ Valsartan 1 tab BID PO 09/24/25 22:00 Spironolactone 25 mg DAILY PO 09/25/25 10:00 Aspirin 81 mg DAILY PO 09/25/25 10:00 Ondansetron HCl 4 mg Q4HP PRN IV 09/24/25 20:15 Acetaminophen 650 mg Q6HP PRN PO 09/24/25 20:15 Hydralazine HCl 10 mg Q6HP PRN IV 09/24/25 21:30 UNV Exam Vital Signs Vital Signs Date Time Temp Pulse Resp B/P (MAP) Pulse Ox O2 Delivery O2 Flow Rate FiO2 09/24/25 21:00 193/115 09/24/25 20:25 95 19 100 Room Air 09/24/25 20:25 98.0 98.0 Exam Gen: 44-year-old female in mild distress Skin: Warm, dry, normal color and texture, no rash. HEENT: Normocephalic atraumatic, mucous membranes moist and pink. Neck: Cervical and supraclavicular nodes normal without enlargement, trachea is midline, thyroid gland is normal without masses. Pulmonary: Clear to auscultation and percussion bilaterally. Cardiac: Regular rate and rhythm. No murmur Abdomen: Soft, nontender, nondistended, bowel sounds present all 4 quadrants, no guarding, no rigidity, no organomegaly. Extremities: No cyanosis, clubbing, no edema Neuro: Cranial nerves II through XII grossly intact, normal affect and speech, no focal motor deficits. Labs/Xrays ORDERING PHYSICIAN: MATY JUAREZ MD PROCEDURE(s): ECIDC - ECHO 2D MODE CARDIAC DOP REASON: Chest tightness/heaviness; CHF. Thank You! ORDER NUMBER(s): [id number], ACCESSION NUMBER(s): [id number] APPROVED REPORT EXAM: Two-dimensional and M-mode echocardiogram with Doppler and color Doppler. Blood Pressure: 113/75 mmHg INDICATION Chest Pain RISK FACTORS Height: 5'8", Weight: 201 DIMENSIONS LVDd 5.8 (3.8-5.7cm) LA (2D) 5.4 (1.9-4.0cm) Aortic Root 3.7 (2.0- 3.7cm) LVDs 4.8 (2.5-4.0cm) LA (MM) (1.9-4.0cm) Aortic Cusp Exc 2.2 (1.5- 2.0cm) EF (%) 36.0 (55-70%) Rt. Atrium 3.4 (1.9-4.0cm) Asc. Aorta 3.7 cm IVSd 1.1 (0.7-1.1cm) RV (D) 3.8 (1.8-2.4cm) PWd 1.8 (0.7-1.1cm) Mitral Valve Mitral Mitral Stenosis E wave 0.84m/s MV Mean GR. mmHg A wave 1.14m/s MV Peak GR. mmHg E/A ratio 0.7 2D MVA cm2 DECEL Time 266ms PRESS 1/2 Time ms Aortic Valve Aortic Valve Aortic Stenosis V1 1.02m/s AO Mean GR. 7mmHg V2 1.72m/s AO Peak GR. 12mmHg LVOT Diameter 2.6 (1.8-2.4cm) Doppler SORAYA 3.15cm2 AI P 1/2 Time 861.53ms Pulmonic Valve V2 1.03m/s Tricuspid Valve TR Velocity 2.44m/s RVSP 27mmHg Conclusion Sinus rhythm. Left atrial enlargement. Aortic root enlargement. LV enlargement. Concentric LVH. Mild mitral annular calcification. The aortic and tricuspid are structurally normal. Left ventricular systolic performance is diminished. EF is about 35% with global hypokinesis. Normal RV function. Doppler reveals moderate mitral insufficiency. Mild tricuspid regurgitation. No pericardial effusion masses or vegetations. ORDERING PHYSICIAN: CAROLIN FONSECA MD PROCEDURE(s): CXR1 - CHEST XRAY 1 VIEW REASON: cp ORDER NUMBER(s): [id number], ACCESSION NUMBER(s): [id number] CHEST RADIOGRAPH INDICATION: cp TECHNIQUE: Single frontal view of the chest was obtained COMPARISON: CHEST PORTABLE on DOS: 11/20/20 FINDINGS: Lines and Tubes: None Lungs: No focal consolidation. Pleura: No effusion. No pneumothorax. Cardiomediastinal contours: Borderline cardiomegaly Bones: No acute osseous abnormality. IMPRESSION: Borderline cardiomegaly. Otherwise, No acute cardiopulmonary disease. Labs Test 09/24/25 17:47 09/24/25 14:31 Range/Units Troponin I High Sensitivity 8 </=34 ng/L White Blood Count 9.3 4.4-10.8 10^3/uL Red Blood Count 5.40 H 4.0-5.20 10^6/uL Hemoglobin 16.5 H 12.2-16.2 g/dL Hematocrit 49.0 H 36.0-46.0 % Mean Corpuscular Volume 90.6 80.0-100.0 fL Mean Corpuscular Hemoglobin 30.5 28.0-32.0 pg Mean Corpuscular Hemoglobin Concent 33.6 32.0-36.0 g/dL Red Cell Distribution Width 13.8 11.8-14.3 % Platelet Count 226 140-450 10^3/uL Mean Platelet Volume 8.2 6.9-10.8 fL Neutrophils (%) (Auto) 71.6 37.0-80.0 % Lymphocytes (%) (Auto) 19.4 10.0-50.0 % Monocytes (%) (Auto) 7.7 0.0-12.0 % Eosinophils (%) (Auto) 0.8 0.0-7.0 % Basophils (%) (Auto) 0.5 0.0-2.0 % Neutrophils # (Auto) 6.7 1.6-8.6 10 ^3/uL Lymphocytes # (Auto) 1.8 0.4-5.4 10 ^3/uL Monocytes # (Auto) 0.7 0-1.3 10 ^3/uL Eosinophils # (Auto) 0.1 0-0.8 10 ^3/uL Basophils # (Auto) 0 0-0.2 10 ^3/uL Nucleated Red Blood Cells 0.0 % Sodium Level 142 136-145 mmol/L Potassium Level 4.1 3.5-5.1 mmol/L Chloride Level 109 H 98-107 mmol/L Carbon Dioxide Level 17 L 20-31 mmol/L Anion Gap 16 H 5-15 Blood Urea Nitrogen 15 9-23 mg/dL Creatinine 1.09 H 0.550-1.02 mg/dL Glomerular Filtration Rate Calc 63 >90 mL/min BUN/Creatinine Ratio 13.8 10.0-20.0 Serum Glucose 111 H 74-106 mg/dL Calcium Level 8.9 8.7-10.4 mg/dL SEPSIS Sepsis Screen Date sepsis recognized/suspect: Sep 24, 2025 Time Sepsis recognized/suspect: 2024 Recent Procedure: No On Antibiotic Therapy: No Respiratory Rate >20: No Heart Rate >90: Yes Temp<36 C (96.8 F) or >38.3 C: No SBP <90 or MAP <65 mmHG: No New Acute Mental Status Change: No Is the patient on CPAP, BIPAP,: No Physician Orders Electrocardigram (09/24/25 15:42) Electrocardigram (09/24/25 17:42) Chest Xray 1 View (09/24/25 16:50) Admit (09/24/25 19:53) Nitroglycerin Sublingual (Ntrostat Subli (09/24/25 20:00) Morphine Sulfate Injection (09/24/25 20:00) Stat Ekg For Chest Pain (09/24/25 19:53) Notify Of Changes From Base (09/24/25 19:53) Contract Accountant For 24 Hours (09/24/25 19:53) Emergency Dysrhythmia Protocol (09/24/25 19:53) Rhythm Strips Once Every Shift (09/24/25 19:53) Oxygen By Nasal Cannula (09/24/25 19:53) Atorvastatin (Lipitor) (09/24/25 22:00) Carvedilol Tablet (Coreg Tablet) (09/24/25 22:00) Empagliflozin (Jardiance) (09/25/25 10:00) Furosemide Tablet (Lasix Tablet) (09/25/25 10:00) Sacubitril-Valsartan (Entresto 24-26 Mg (09/24/25 22:00) Spironolactone (Aldactone) (09/25/25 10:00) Aspirin Tablet (09/25/25 10:00) * Cardiology Consult (09/24/25 20:02) Basic Metabolic Panel (09/25/25 04:00) Ondansetron Hcl (Zofran) (09/24/25 20:15) Cardiac Diet-2gna,Lofat,Lochol (09/25/25 Breakfast) Condition: Fair (09/24/25 20:02) Acetaminophen Tablet (Tylenol Tablet) (09/24/25 20:15) Bedrest With Bathroom Privileg (09/24/25 20:02) Hydralazine Injection (Apresoline Inject (09/24/25 21:30) Vital Signs Date Time Temp Pulse Resp B/P (MAP) Pulse Ox O2 Delivery O2 Flow Rate FiO2 09/24/25 21:00 193/115 09/24/25 20:25 95 19 100 Room Air 09/24/25 20:25 98.0 95 19 193/115 (141) 100 98.0 09/24/25 15:52 94 09/24/25 14:48 98 09/24/25 14:39 98.0 109 22 185/131 98 98.0 Laboratory Tests Test 09/24/25 14:31 White Blood Count 9.3 10^3/uL (4.4-10.8) Medications Medications Dose Ordered Sig/Mony Route Start Time Stop Time Status Last Admin Dose Admin Aspirin 325 mg ONCE ONCE PO 09/24/25 20:00 09/24/25 20:01 DC 09/24/25 20:47 325 MG Hydralazine HCl 10 mg ONCE ONCE IV 09/24/25 20:45 09/24/25 20:46 DC 09/24/25 21:00 10 MG Assessment/Plan Assessment/Plan Assessment Unstable angina Hypertensive urgency History of AK Plan Admit the patient to telemetry to the hospitalist Cardiology consultation As needed antihypertensives Resume home medications Continue treatment per orders. Plan discussed with: Patient My Orders Orders - CHERYL IRVING AGACNP Procedure Category Date Status Time Admit ADMIT 09/24/25 Transmitted 19:53 Nitroglycerin PHA 09/24/25 In Process Sublingual (Ntrostat 20:00 Morphine Sulfate PHA 09/24/25 In Process Injection 20:00 Stat Ekg For Chest MARIELA 09/24/25 In Process Pain 19:53 Notify Of Changes [facility] 09/24/25 In Process From Base 19:53 Contract Accountant For [facility] 09/24/25 In Process 24 Hours 19:53 Emergency Dysrhythmia [facility] 09/24/25 In Process Protocol 19:53 Rhythm Strips Once [facility] 09/24/25 In Process Every Shift 19:53 Oxygen By Nasal RT 09/24/25 Transmitted Cannula 19:53 Atorvastatin (Lipitor) PHA 09/24/25 In Process 22:00 Carvedilol Tablet PHA 09/24/25 In Process (Coreg Tablet) 22:00 Empagliflozin PHA 09/25/25 In Process (Jardiance) 10:00 Furosemide Tablet PHA 09/25/25 In Process (Lasix Tablet) 10:00 Sacubitril-Valsartan PHA 09/24/25 In Process (Entresto 24-26 Mg 22:00 Spironolactone PHA 09/25/25 In Process (Aldactone) 10:00 Aspirin Tablet PHA 09/25/25 In Process 10:00 * Cardiology Consult CONS 09/24/25 Transmitted 20:02 Basic Metabolic Panel LAB 09/25/25 Verified 04:00 Ondansetron Hcl PHA 09/24/25 In Process (Zofran) 20:15 Cardiac DIET 09/25/25 Transmitted Diet-2gna,Lofat,Lochol Breakfast Condition: Fair MARIELA 09/24/25 In Process 20:02 Acetaminophen Tablet PHA 09/24/25 In Process (Tylenol Tablet) 20:15 Bedrest With Bathroom MARIELA 09/24/25 In Process Privileg 20:02 Hydralazine Injection PHA 09/24/25 Logged (Apresoline Inject 21:30 Date of Service: Sep 24, 2025 Billing Provider: CHERYL IRVING Common Visit Codes: [id number] INP/OBS CARE (HIGH) CHERYL IRVING Sep 24, 2025 21:24
[2025-09-24] MEDS: ATORVASTATIN 20 MG TAB PO SCH (22:22)
[2025-09-24] MEDS: SACUBITRIL-VALSARTAN 24mg/26mg TAB PO SCH (22:22)
[2025-09-24] MEDS: CARVEDILOL 12.5 MG TAB PO SCH (22:22)
[2025-09-25] MEDS: hydrALAZINE HCL 20 MG/ML VL IV PRN (04:07)
[2025-09-25] MEDS: diphenhydrAMINE HCL 50 MG/1 ML VL IV ONE (04:48)
[2025-09-25] MEDS: FAMOTIDINE (10MG/ML) 2ML VL IV ONE ×2 (04:48→04:50)
[2025-09-25] MEDS: diphenhydrAMINE HCL 50 MG/1 ML VL ONE (04:49)
[2025-09-25] MEDS: methylPREDNISolone SOD SUCC 125 MG/2 ML VL IV ONE (05:18)
[2025-09-25 05:37] LABS: Chloride 106 mmol/L (98-107); Potassium 3.6 mmol/L (3.5-5.1); Sodium 140 mmol/L (136-145)
[2025-09-25 05:38] LABS: Anion Gap 11 (5-15); Carbon Dioxide 23 mmol/L (20-31)
[2025-09-25 05:39] LABS: Calcium 9.5 mg/dL (8.7-10.4)
[2025-09-25 05:43] LABS: BUN/Creatinine Ratio 16.3 (10.0-20.0); Blood Urea Nitrogen 16 mg/dL (9-23); Glucose 101 mg/dL (74-106)
[2025-09-25] MEDS: SPIRONOLACTONE 25 MG TAB PO SCH (10:33)
[2025-09-25] MEDS: EMPAGLIFLOZIN 10 MG TAB PO SCH (10:35)
[2025-09-25] MEDS: FUROSEMIDE 20 MG TAB PO SCH (10:36)
--- NOTE | 2025-09-25 10:40 | DVHINCON2 ---
Date Seen: Sep 25, 2025 Referring Physician Andrea Mirza Reason for Consultation Chest pain History of Present Illness This is a 44-year-old female who presented to the emergency room with a chief complaint of chest pain progressively getting worse for one week. Describes her chest pain as left-sided, sharp in nature as a feeling of "being shocked," radiating to the left neck area, and associated with a PND, orthopnea, and ECKERT. Denies palpitations, diaphoresis, dizziness, or syncopal events. She underwent multiple 12 lead electrocardiograms revealing a normal sinus rhythm longest QTC at 511 ms. Serial troponin levels are negative. Reports a history of a nonischemic cardiomyopathy undergoing a cardiac catheterization coronary angiogram with the catheter based intervention given normal coronaries in 2006. The patient also reports she has been seen by Cardiology at [facility], [facility], and [facility]. Currently not following up with a primary recycling crew supervisor. States she will establish care with a PCP in October 2025 who will refer her to a primary recycling crew supervisor. Reports medical compliance with medical therapy at home. Significant medical history includes nonischemic cardiomyopathy with HFrEF, history of multiple supraventricular tachycardia events in the past, long QT syndrome, history of pericarditis, mitral insufficiency of moderate degree, hypertension, dyslipidemia, and ADHD. Past Medical History Past medical history reviewed. No other significant than mentioned above. Past Surgical History Past surgical history reviewed. No other significant than mentioned above. Family History: Hypercholesterolemia G8 MOTHER Hypertension G8 MOTHER G8 SISTER Family History Family history reviewed. Social History Denies the use of illicit drugs, alcohol, or tobacco use. Allergies: Coded Allergies: Hydralazine (Verified Allergy, Unknown, rash, 09/25/25) Home Meds Active Scripts Spironolactone (Aldactone) 25 Mg Tab, 25 MG PO DAILY for 30 Days, #30 TAB Prov:MATY JUAREZ MD 05/17/25 Sacubitril-Valsartan (Entresto 24-26 mg) 1 Tab Tab, 1 TAB PO BID for 30 Days, #60 TAB Prov:MATY JUAREZ MD 05/17/25 Nitroglycerin (NTROSTAT SUBLINGUAL) 0.4 Mg Sl, 0.4 MG SL Q5MINP PRN for 30 Days, #90 TAB Prov:MATY JUAREZ MD 05/17/25 Empagliflozin (Jardiance) 10 Mg Tab, 10 MG PO DAILY for 30 Days, #30 TAB Prov:MATY JUAREZ MD 05/17/25 Carvedilol (COREG) 12.5 Mg Tab, 12.5 MG PO Q12HR for 30 Days, #60 TAB Prov:MATY JUAREZ MD 05/17/25 Atorvastatin Calcium (ATORVASTATIN CALCIUM) 20 Mg Tab, 20 MG PO HS for 30 Days, #30 TAB Prov:MATY JUAREZ MD 05/17/25 Reported Medications Furosemide (Lasix) 20 Mg Tb, 1 TAB PO DAILY for SWELLING, #90 TAB 1 Refill 11/21/20 Home Meds Home medications reviewed. Current Medications Current Medications Medications (Trade) Dose Ordered Sig/Mony Route PRN Reason Start Time Stop Time Status Last Admin Nitroglycerin (Ntrostat Sublingual) 0.4 mg Q5MINP PRN SL FOR CHEST PAIN 09/24/25 20:00 Morphine Sulfate 2 mg Q30M PRN IV FOR CHEST PAIN 09/24/25 20:00 Atorvastatin Calcium (Lipitor) 20 mg HS PO 09/24/25 22:00 09/24/25 22:22 Carvedilol (Coreg Tablet) 12.5 mg Q12HR PO 09/24/25 22:00 09/25/25 10:34 Empaglifozin (Jardiance) 10 mg DAILY PO 09/25/25 10:00 09/25/25 10:35 Furosemide (Lasix Tablet) 20 mg DAILY PO 09/25/25 10:00 09/25/25 10:36 Sacubitril/ Valsartan (Entresto 24-26 Mg tab) 1 tab BID PO 09/24/25 22:00 09/25/25 10:34 Spironolactone (Aldactone) 25 mg DAILY PO 09/25/25 10:00 09/25/25 10:33 Aspirin 81 mg DAILY PO 09/25/25 10:00 09/25/25 10:11 DC Ondansetron HCl (Zofran) 4 mg Q4HP PRN IV NAUSEA / VOMITING 09/24/25 20:15 Acetaminophen (Tylenol Tablet) 650 mg Q6HP PRN PO PAIN SCALE 1-3 OR TEMP>100.4 12/9/25 20:15 Hydralazine HCl (Apresoline Injection) 10 mg Q6HP PRN IV SBP>150 09/24/25 21:30 09/25/25 04:52 DC 09/25/25 04:07 Aspirin 81 mg DAILY PO 09/25/25 10:11 09/25/25 10:36 Review of Systems Constitutional: No symptom reported Ears, Nose, & Throat: No symptom reported Eyes: No symptom reported Neurological: No symptoms reported Pulmonary/Respiratory: SOB Cardiovascular: Chest pain Gastrointestinal: No symptom reported Genitourinary: No symptom reported Musculoskeletal: No symptom reported Skin: No symptom reported Psychiatric: No symptom reported Endocrine: No symptom reported Hemotologic/Lymphatic: No symptom reported Vital Signs Vital Signs Date Time Temp Pulse Resp B/P (MAP) Pulse Ox O2 Delivery O2 Flow Rate FiO2 09/25/25 10:36 165/111 09/25/25 10:34 94 09/25/25 04:43 98.1 20 97 98.1 09/24/25 20:25 Room Air Physical Exam General Appearance: Cooperative. Well developed. Well nourished. In no acute distress Head Exam: Normal inspection Neck Exam: Normal inspection. Non-tender. Normal alignment Pulmonary/Respiratory: Chest non-tender. Clear bilateral breath sounds Cardiovascular/Chest: Regular rate and rhythm. S1, S2. NSR. No murmurs. No JVD. Peripheral Pulses: 2+ Radial (R). 2+ Radial (L). 2+ Pedal (R). 2+ Pedal (L) Abdominal Exam: Normal bowel sounds Ankle Exam: Negative ankle edema Lower extremities: Negative lower extremity edema Neuro/Mental Status: A&O x4. Coherent Thoughts/Psych: Normal thought pattern. Anxious Appearance: In no acute distress Skin Exam: Normal inspection. Normal color. Warm. Dry Labs/Diagnostic Data Labs Test 09/25/25 04:51 09/24/25 17:47 09/24/25 14:31 Range/Units Sodium Level 140 136-145 mmol/L Potassium Level 3.6 3.5-5.1 mmol/L Chloride Level 106 98-107 mmol/L Carbon Dioxide Level 23 20-31 mmol/L Anion Gap 11 5-15 Blood Urea Nitrogen 16 9-23 mg/dL Creatinine 0.98 0.550-1.02 mg/dL Glomerular Filtration Rate Calc 72 >90 mL/min BUN/Creatinine Ratio 16.3 10.0-20.0 Serum Glucose 101 74-106 mg/dL Calcium Level 9.5 8.7-10.4 mg/dL Troponin I High Sensitivity 8 </=34 ng/L White Blood Count 9.3 4.4-10.8 10^3/uL Red Blood Count 5.40 H 4.0-5.20 10^6/uL Hemoglobin 16.5 H 12.2-16.2 g/dL Hematocrit 49.0 H 36.0-46.0 % Mean Corpuscular Volume 90.6 80.0-100.0 fL Mean Corpuscular Hemoglobin 30.5 28.0-32.0 pg Mean Corpuscular Hemoglobin Concent 33.6 32.0-36.0 g/dL Red Cell Distribution Width 13.8 11.8-14.3 % Platelet Count 226 140-450 10^3/uL Mean Platelet Volume 8.2 6.9-10.8 fL Neutrophils (%) (Auto) 71.6 37.0-80.0 % Lymphocytes (%) (Auto) 19.4 10.0-50.0 % Monocytes (%) (Auto) 7.7 0.0-12.0 % Eosinophils (%) (Auto) 0.8 0.0-7.0 % Basophils (%) (Auto) 0.5 0.0-2.0 % Neutrophils # (Auto) 6.7 1.6-8.6 10 ^3/uL Lymphocytes # (Auto) 1.8 0.4-5.4 10 ^3/uL Monocytes # (Auto) 0.7 0-1.3 10 ^3/uL Eosinophils # (Auto) 0.1 0-0.8 10 ^3/uL Basophils # (Auto) 0 0-0.2 10 ^3/uL Nucleated Red Blood Cells 0.0 % Assessment Chest pain in the setting of hypertensive urgency Acute on chronic decompensated HFrEF, NYHA class III Nonischemic cardiomyopathy Long QT syndrome (511 ms on ECG) Hx of multiple SVT events Dyslipidemia ADHD Plan/Recommendation (Dr. Gonsalves) Doubt ACS. The patient presents with non-cardiac chest pain, negative ST segment changes on twelve-lead electrocardiograms, and negative serial troponin levels. A recent transthoracic echocardiogram revealed LVEF of about 35% with global hypokinesis and normal RV function. Continue GDMT for HFrEF & titrate as tolerated. Initiate preload and afterload reduction, strict I&Os, daily weight, and fluid restrictions. Continue lipid lowering agent. Replete electrolytes as necessary, K>4 and Mg>2. The patient was offered a stress test but refused as she was told by previous cardiologists this is contraindicated in the setting of LQTS. She was offered a treadmill stress but was not sure she could tolerate given SOB. Recommendations are for an outpatient treadmill stress test, event monitor, and to be referred for an outpatient AICD given compliance with GDMT, HFrEF, and LQTS. There is no further cardiac work-up indicated at this time. Kindly call if in need of further recommendations. Thank you for allowing us to participate in this patient's care. This medical document was created using an electronic medical record system with voice recognition software and computerized dictation system. Although this document has been carefully reviewed, there might still be some phonetic and typographical errors. Occasional wrong-word or ``sound-alike substitutions may have occurred due to the inherent limitations of voice recognition software. These areas are purely typographical due to imperfections of the software programs and do not reflect any compromise in the patient's medical care. Please read the chart carefully and recognize, using context, where these substitutions have occurred. Plan discussed with: Patient, Other NYHA Physical activity limitations: Class3(Marked) ordinary (activity causes symtoms) Date of Service: Sep 25, 2025 Billing Provider: COLIN CANO Cardiology Common Codes: [id number] INP/OBS CARE (High) COLIN CANO Sep 25, 2025 10:40
[2025-09-25 11:06] LABS: Magnesium 2.2 mg/dL (1.6-2.6); Triglycerides 112.0 mg/dL (< 150)
[2025-09-25 11:07] LABS: HDL Cholesterol 54.0 mg/dL (40-59)
[2025-09-25 11:12] LABS: Cholesterol 207.0 mg/dL (< 200)
[2025-09-25] MEDS: POTASSIUM CHL 20 Meq TABLET PO ONE (13:01)
--- NOTE | 2025-09-25 13:04 | ECG ---
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
--- NOTE | 2025-09-25 14:28 | DVHPN2 ---
Reviewed: Care Plan Changes from previous H/P or p: No Changes Objective Vitals Vital Signs Date Time Temp Pulse Resp B/P (MAP) Pulse Ox O2 Delivery O2 Flow Rate FiO2 09/25/25 13:08 97.6 94 20 157/102 (120) 96 97.6 09/24/25 20:25 Room Air Medications Current Medications Medications Dose Ordered Sig/Mony Route Start Time Stop Time Status Last Admin Dose Admin Nitroglycerin 0.4 mg Q5MINP PRN SL 09/24/25 20:00 Morphine Sulfate 2 mg Q30M PRN IV 09/24/25 20:00 Atorvastatin Calcium 20 mg HS PO 09/24/25 22:00 09/24/25 22:22 20 MG Empaglifozin 10 mg DAILY PO 09/25/25 10:00 09/25/25 10:35 10 MG Sacubitril/ Valsartan 1 tab BID PO 09/24/25 22:00 09/25/25 10:34 1 TAB Spironolactone 25 mg DAILY PO 09/25/25 10:00 09/25/25 10:33 25 MG Ondansetron HCl 4 mg Q4HP PRN IV 09/24/25 20:15 Acetaminophen 650 mg Q6HP PRN PO 09/24/25 20:15 Aspirin 81 mg DAILY PO 09/25/25 10:11 09/25/25 10:36 81 MG Furosemide 40 mg BIDD IV 09/25/25 18:00 Carvedilol 25 mg Q12HR PO 09/25/25 22:00 Laboratory Results Laboratory Tests 09/24/25 14:31 09/25/25 04:51 Chemistry Test 09/24/25 14:31 09/25/25 04:51 Calcium Level 8.9 mg/dL (8.7-10.4) 9.5 mg/dL (8.7-10.4) Magnesium Level 2.2 mg/dL (1.6-2.6) Lipid panel Test 09/25/25 04:51 Cholesterol Level 207 mg/dL (< 200) H HDL Cholesterol 54 mg/dL (40-59) Triglycerides Level 112 mg/dL (< 150) Cardiac Markers Test 09/25/25 04:51 B-Type Natriuretic Peptide 129.56 pg/mL (0-100) HgA1c, TSH Test 09/25/25 04:51 Hemoglobin A1c 5.1 % A1C (<5.7) Labs and/or images reviewed: Labs reviewed by me, Image(s) reviewed by me Assessment/Plan Assessment/Plan Chest pain in the setting of hypertensive urgency cardiology consult appreciated, advised outpatient stress test, no further cardiac workup Acute on chronic decompensated HFrEF, NYHA class III Lasix Nonischemic cardiomyopathy ejection fraction 35 percent Long QT syndrome (511 ms on ECG) Hx of multiple SVT events Dyslipidemia ADHD Time Spent 45 minutes Plan discussed with: Patient Date of Service: Sep 25, 2025 Billing Provider: TRISTIN MOURA MD Common Visit Codes: [id number] INP/OBS CARE(HIGH) TRISTIN MOURA MD Sep 25, 2025 14:28
[2025-09-25 16:56] VITALS: BP 150/93; PULSE 98; RESP 16; TEMP 97.9; O2SAT 96
[2025-09-25] MEDS ORDERED: FUROSEMIDE 40 MG/4 ML VIAL IV SCH (18:00)
[2025-09-25] MEDS ORDERED: CARVEDILOL 12.5 MG TAB PO SCH (22:00)
--- NOTE | 2025-09-26 00:26 | DVHINCON2 ---
Date Seen: Sep 25, 2025 Referring Physician SALVADOR Mirza Reason for Consultation Chest pain History of Present Illness This is a 44-year-old female with a past medical history of nonischemic cardiomyopathy with HFrEF, history of multiple supraventricular tachycardia events in the past, long QT syndrome, history of pericarditis, mitral insufficiency of moderate degree, hypertension, dyslipidemia, and ADHD who presented to the emergency room with a complaint of chest pain progressively getting worse for one week. Describes her chest pain as left-sided, sharp in nature as a feeling of "being shocked," radiating to the left neck area, and associated with a PND, orthopnea, and ECKERT. Denies palpitations, diaphoresis, dizziness, or syncopal events. She underwent multiple 12 lead electrocardiograms revealing a normal sinus rhythm longest QTC at 511 ms. Serial troponin levels are negative. Reports a history of a nonischemic cardiomyopathy undergoing a cardiac catheterization coronary angiogram with the catheter based intervention given normal coronaries in 2006. The patient also reports she has been seen by Cardiology at [facility], [facility], and [facility]. Currently not following up with a [place] [place] [facility]. States she will establish care with a PCP in October 2025 who will refer her to a primary [facility]. Reports medical compliance with medical therapy at home. Chest x-ray shows borderline cardiomegaly. Patient was admitted to the hospital. I am asked to consult on this patient. Past Medical History Past medical history reviewed. No other significant than mentioned above. Past Surgical History Past surgical history reviewed. No other significant than mentioned above. Family History: Hypercholesterolemia G8 MOTHER Hypertension G8 MOTHER G8 SISTER Allergies: Coded Allergies: Hydralazine (Verified Allergy, Unknown, rash, 09/25/25) Home Meds Active Scripts Spironolactone (Aldactone) 25 Mg Tab, 25 MG PO DAILY for 30 Days, #30 TAB Prov:MATY JUAREZ MD 05/17/25 Sacubitril-Valsartan (Entresto 24-26 mg) 1 Tab Tab, 1 TAB PO BID for 30 Days, #60 TAB Prov:MATY JUAREZ MD 05/17/25 Nitroglycerin (NTROSTAT SUBLINGUAL) 0.4 Mg Sl, 0.4 MG SL Q5MINP PRN for 30 Days, #90 TAB Prov:MATY JUAREZ MD 05/17/25 Empagliflozin (Jardiance) 10 Mg Tab, 10 MG PO DAILY for 30 Days, #30 TAB Prov:MATY JUAREZ MD 05/17/25 Carvedilol (COREG) 12.5 Mg Tab, 12.5 MG PO Q12HR for 30 Days, #60 TAB Prov:MATY JUAREZ MD 05/17/25 Atorvastatin Calcium (ATORVASTATIN CALCIUM) 20 Mg Tab, 20 MG PO HS for 30 Days, #30 TAB Prov:MATY JUAREZ MD 05/17/25 Reported Medications Furosemide (Lasix) 20 Mg Tb, 1 TAB PO DAILY for SWELLING, #90 TAB 1 Refill 11/21/20 Current Medications Current Medications Medications (Trade) Dose Ordered Sig/Mony Route PRN Reason Start Time Stop Time Status Last Admin Nitroglycerin (Ntrostat Sublingual) 0.4 mg Q5MINP PRN SL FOR CHEST PAIN 09/24/25 20:00 Morphine Sulfate 2 mg Q30M PRN IV FOR CHEST PAIN 09/24/25 20:00 Atorvastatin Calcium (Lipitor) 20 mg HS PO 09/24/25 22:00 09/24/25 22:22 Carvedilol (Coreg Tablet) 12.5 mg Q12HR PO 09/24/25 22:00 09/25/25 12:38 DC 09/25/25 10:34 Empaglifozin (Jardiance) 10 mg DAILY PO 09/25/25 10:00 09/25/25 10:35 Furosemide (Lasix Tablet) 20 mg DAILY PO 09/25/25 10:00 09/25/25 10:50 DC 09/25/25 10:36 Sacubitril/ Valsartan (Entresto 24-26 Mg tab) 1 tab BID PO 09/24/25 22:00 09/25/25 10:34 Spironolactone (Aldactone) 25 mg DAILY PO 09/25/25 10:00 09/25/25 10:33 Aspirin 81 mg DAILY PO 09/25/25 10:00 09/25/25 10:11 DC Ondansetron HCl (Zofran) 4 mg Q4HP PRN IV NAUSEA / VOMITING 09/24/25 20:15 Acetaminophen (Tylenol Tablet) 650 mg Q6HP PRN PO PAIN SCALE 1-3 OR TEMP>100.4 09/24/25 20:15 Hydralazine HCl (Apresoline Injection) 10 mg Q6HP PRN IV SBP>150 09/24/25 21:30 09/25/25 04:52 DC 09/25/25 04:07 Aspirin 81 mg DAILY PO 09/25/25 10:11 09/25/25 10:36 Furosemide (Lasix Injection) 40 mg BIDD IV 09/25/25 18:00 Carvedilol (Coreg Tablet) 25 mg Q12HR PO 09/25/25 22:00 Review of Systems Constitutional: No symptom reported Ears, Nose, & Throat: No symptom reported Eyes: No symptom reported Neurological: No symptoms reported Pulmonary/Respiratory: SOB Cardiovascular: Chest pain Gastrointestinal: No symptom reported Genitourinary: No symptom reported Musculoskeletal: No symptom reported Skin: No symptom reported Psychiatric: No symptom reported Endocrine: No symptom reported Hemotologic/Lymphatic: No symptom reported Vital Signs Vital Signs Date Time Temp Pulse Resp B/P (MAP) Pulse Ox O2 Delivery O2 Flow Rate FiO2 09/25/25 12:17 94 157/10 09/25/25 10:37 98.0 20 96 98.0 09/24/25 20:25 Room Air Physical Exam GENERAL: Alert and oriented x 3. No acute distress. EYES: PERRL, EOMI. Anicteric. HENT: Moist mucous membranes. LUNGS: Clear to auscultation bilaterally. CARDIOVASCULAR: Regular rate and rhythm. ABDOMEN: Soft, nontender and nondistended. EXTREMITIES: No edema. NEUROLOGIC: No focal neurological deficits. SKIN: Warm, dry. Labs/Diagnostic Data Labs Test 09/25/25 04:51 09/24/25 17:47 09/24/25 14:31 Range/Units Sodium Level 140 136-145 mmol/L Potassium Level 3.6 3.5-5.1 mmol/L Chloride Level 106 98-107 mmol/L Carbon Dioxide Level 23 20-31 mmol/L Anion Gap 11 5-15 Blood Urea Nitrogen 16 9-23 mg/dL Creatinine 0.98 0.550-1.02 mg/dL Glomerular Filtration Rate Calc 72 >90 mL/min BUN/Creatinine Ratio 16.3 10.0-20.0 Serum Glucose 101 74-106 mg/dL Hemoglobin A1c 5.1 <5.7 % A1C Calcium Level 9.5 8.7-10.4 mg/dL Magnesium Level 2.2 1.6-2.6 mg/dL B-Type Natriuretic Peptide 129.56 0-100 pg/mL Triglycerides Level 112 < 150 mg/dL Cholesterol Level 207 H < 200 mg/dL LDL Cholesterol 141 H < 100 mg/dL HDL Cholesterol 54 40-59 mg/dL Troponin I High Sensitivity 8 </=34 ng/L White Blood Count 9.3 4.4-10.8 10^3/uL Red Blood Count 5.40 H 4.0-5.20 10^6/uL Hemoglobin 16.5 H 12.2-16.2 g/dL Hematocrit 49.0 H 36.0-46.0 % Mean Corpuscular Volume 90.6 80.0-100.0 fL Mean Corpuscular Hemoglobin 30.5 28.0-32.0 pg Mean Corpuscular Hemoglobin Concent 33.6 32.0-36.0 g/dL Red Cell Distribution Width 13.8 11.8-14.3 % Platelet Count 226 140-450 10^3/uL Mean Platelet Volume 8.2 6.9-10.8 fL Neutrophils (%) (Auto) 71.6 37.0-80.0 % Lymphocytes (%) (Auto) 19.4 10.0-50.0 % Monocytes (%) (Auto) 7.7 0.0-12.0 % Eosinophils (%) (Auto) 0.8 0.0-7.0 % Basophils (%) (Auto) 0.5 0.0-2.0 % Neutrophils # (Auto) 6.7 1.6-8.6 10 ^3/uL Lymphocytes # (Auto) 1.8 0.4-5.4 10 ^3/uL Monocytes # (Auto) 0.7 0-1.3 10 ^3/uL Eosinophils # (Auto) 0.1 0-0.8 10 ^3/uL Basophils # (Auto) 0 0-0.2 10 ^3/uL Nucleated Red Blood Cells 0.0 % Assessment Chest pain in the setting of hypertensive urgency. Acute on chronic decompensated HFrEF, NYHA class III. Nonischemic cardiomyopathy. Long QT syndrome (511 ms on ECG). Hx of multiple SVT events. Dyslipidemia. ADHD. Plan/Recommendation I agree with your ongoing assessment and care of plan. Patient has been seen by Elvie Dinh NP on my behalf, her and I discussed the plan with the patient. Doubt ACS. The patient presents with non-cardiac chest pain, negative ST segment changes on twelve-lead electrocardiograms, and negative serial troponin levels. A recent transthoracic echocardiogram revealed LVEF of about 35% with global hypokinesis and normal RV function. Continue GDMT for HFrEF & titrate as tolerated. Initiate preload and afterload reduction, strict I&Os, daily weight, and fluid restrictions. Continue lipid lowering agent. Replete electrolytes as necessary, K>4 and Mg>2. The patient was offered a stress test but refused as she was told by previous cardiologists this is contraindicated in the setting of LQTS. She was offered a treadmill stress but was not sure she could tolerate given SOB. Recommendations are for an outpatient treadmill stress test, event monitor, and to be referred for an outpatient AICD given compliance with GDMT, HFrEF, and LQTS. Additional plan as per the hospital course. Plan discussed with: Patient NYHA Physical activity limitations: Class3(Marked) ordinary Date of Service: Sep 25, 2025 Billing Provider: RAMON BAILON MD Cardiology Common Codes: 98387-WRQAESG INP/OBS CARE (High) Cardiology Consultation Codes: 16682-ZQENHJOMJ CONSULT <45MIN RAMON BAILON MD Sep 25, 2025 12:58
--- NOTE | 2025-09-26 10:55 | DVHDS2 ---
Discharge Summary Date of Admission Sep 24, 2025 at 19:53 Date of Discharge: Sep 26, 2025 Admitting Diagnosis Chest pain Wounds: None Labs/Diagnostic Data: Laboratory Results Test 09/25/25 04:51 09/24/25 17:47 09/24/25 14:31 Sodium Level 140 mmol/L (136-145) Potassium Level 3.6 mmol/L (3.5-5.1) Chloride Level 106 mmol/L (98-107) Carbon Dioxide Level 23 mmol/L (20-31) Anion Gap 11 (5-15) Blood Urea Nitrogen 16 mg/dL (9-23) Creatinine 0.98 mg/dL (0.550-1.02) Glomerular Filtration Rate Calc 72 mL/min (>90) BUN/Creatinine Ratio 16.3 (10.0-20.0) Serum Glucose 101 mg/dL (74-106) Hemoglobin A1c 5.1 % A1C (<5.7) Calcium Level 9.5 mg/dL (8.7-10.4) Magnesium Level 2.2 mg/dL (1.6-2.6) B-Type Natriuretic Peptide 129.56 pg/mL (0-100) Triglycerides Level 112 mg/dL (< 150) Cholesterol Level 207 mg/dL (< 200) LDL Cholesterol 141 mg/dL (< 100) HDL Cholesterol 54 mg/dL (40-59) Troponin I High Sensitivity 8 ng/L (</=34) White Blood Count 9.3 10^3/uL (4.4-10.8) Red Blood Count 5.40 10^6/uL (4.0-5.20) Hemoglobin 16.5 g/dL (12.2-16.2) Hematocrit 49.0 % (36.0-46.0) Mean Corpuscular Volume 90.6 fL (80.0-100.0) Mean Corpuscular Hemoglobin 30.5 pg (28.0-32.0) Mean Corpuscular Hemoglobin Concent 33.6 g/dL (32.0-36.0) Red Cell Distribution Width 13.8 % (11.8-14.3) Platelet Count 226 10^3/uL (140-450) Mean Platelet Volume 8.2 fL (6.9-10.8) Neutrophils (%) (Auto) 71.6 % (37.0-80.0) Lymphocytes (%) (Auto) 19.4 % (10.0-50.0) Monocytes (%) (Auto) 7.7 % (0.0-12.0) Eosinophils (%) (Auto) 0.8 % (0.0-7.0) Basophils (%) (Auto) 0.5 % (0.0-2.0) Neutrophils # (Auto) 6.7 10 ^3/uL (1.6-8.6) Lymphocytes # (Auto) 1.8 10 ^3/uL (0.4-5.4) Monocytes # (Auto) 0.7 10 ^3/uL (0-1.3) Eosinophils # (Auto) 0.1 10 ^3/uL (0-0.8) Basophils # (Auto) 0 10 ^3/uL (0-0.2) Nucleated Red Blood Cells 0.0 % Other Laboratory Tests 09/25/25 04:51 09/24/25 14:31 Brief Hx & Hospital Course: 44-year-old female with a history of SVT hypercholesterolemia ADHD came in complaining of chest pain. Troponin negative x3 patient had is very high blood pressure treated with the medications cardiology consult was obtained. Advised noncardiac chest pain advised outpatient stress test patient has a history of nonischemic cardiomyopathy with the ejection fraction 35 percent and also long QT syndrome patient was seen in the ER lobby. She was admitted to the hospital for further evaluation but she left AMA from the ER. Consequences and complications including possible explained to the patient and she verbalized understanding general condition satisfactory at the time of leaving AMA per nurse's notes Consults/Reason for consult Cardiology Operations or Procedures None Condition at Discharge: Fair Final Diagnosis/Problems List Chest pain in the setting of hypertensive urgency cardiology consult appreciated, advised outpatient stress test, no further cardiac workup Acute on chronic decompensated HFrEF, NYHA class III Lasix Nonischemic cardiomyopathy ejection fraction 35 percent Long QT syndrome (511 ms on ECG) Hx of multiple SVT events Dyslipidemia ADHD Discharge Disposition: AMA Discharge Instruct/Medications Diet comment: Not applicable Patient left AMA Activity comment: Not applicable Patient left AMA Follow Up/Referral: Not applicable Patient left AMA Medications: Not applicable Patient left AMA Scheduled Atorvastatin Calcium (Atorvastatin Calcium), 20 MG PO HS Carvedilol (Coreg), 12.5 MG PO Q12HR Empagliflozin (Jardiance), 10 MG PO DAILY Furosemide (Lasix), 1 TAB PO DAILY, (Reported) Sacubitril-Valsartan (Entresto 24-26 mg), 1 TAB PO BID Spironolactone (Aldactone), 25 MG PO DAILY Scheduled PRN Nitroglycerin (Ntrostat Sublingual), 0.4 MG SL Q5MINP PRN 39 (Time taken for discharge summary 39 minutes) Discharge Statement: "Patient was advised to return to the ER or call 911 if any headaches, dizziness, shortness of breath, chest pain, abdominal pain, bleeding, fevers, or worsening of medical condition. Patient was counseled about treatment plan, medications, possible side effects, patientverbalized understanding. All questions were answered to the best of my ability. This discharge took greater then 30 minutes in planning, reviewing documentation, counseling the patient, and discussing with other team members." ASSESSMENT ASSESSMENT Hospital Course Left AMA Assessment Date of Service: Sep 26, 2025 Billing Provider: TRISTIN MOURA MD Common Visit Codes: 24196-PQP/OBS DISCH DAY >30min TRISTIN MOURA MD Sep 26, 2025 10:55
== END 2025-09-25 19:54 | disposition left against medical advice (07) | DRG 199 ==
LOC: ER 14:37 → OVERFLOW 19:53
PROVIDERS: ADMIT Family Medicine; ATTEND Family Medicine
DX: I16.0 Hypertensive urgency (principal); I50.23 Acute on chronic systolic (congestive) heart failure; I11.0 Hypertensive heart disease with heart failure; F90.9 Attention-deficit hyperactivity disorder, unspecified type; Z53.29 Procedure and treatment not carried out because of patient's decision for other reasons; E78.00 Pure hypercholesterolemia, unspecified; I20.0 Unstable angina; I25.2 Old myocardial infarction; Z82.49 Family history of ischemic heart disease and other diseases of the circulatory system; Z79.899 Other long term (current) drug therapy
CPT/HCPCS: 36415; 71045; 80048; 80061; 83036; 83735; 83880; 84484; 85025; 93005; 99291; G0378; J3490